=== PATIENT | female | born 1955 | race Caucasian/White ===

== ENCOUNTER 2016-08-15 21:41 | Inpatient (IN) | payer OTHER ==
[~2016-08-15] VITALS: Ht 160 cm; Wt 87.7 kg
[~2016-08-15 21:41] MED LIST: ADVAIR 250/501 DISK IH; ALBUTEROL2.5 MG/3 M IH; AUGMENTIN875 MG PO; AZITHROMYCIN500 M1 PO; CALCIUM 500 +1 EACH PO; CEFTIN500 MG PO; COMBIVENT200 INHALA IH; DELTASONE20 M1 PO; ENDOCET 5-3251 EACH PO; FAMOTIDINE20 MG PO; FLONASE16 G1 NS; INCRUSE ELLI62.5 MCG IH; LEVOFLOXACIN750 MG PO; LEVOTHYROXINE25 MCG PO; MEDROL DOSEPAK4 MG PO; NICODERM CQ1 EAC2 TD; NICOTINE PATCH1 EACH TD; NOHOMEMEDS; PAROXETINE HCL30 MG PO; PREDNISONE10 M1 PO; PREDNISONE10 MG PO; PROAIR HFA8.5 GM IH; PROVENTIL HFA6.7 GM IH; PROVENTIL,2.5 MG/0.5 IH; PROVENTIL,2.5 MG/3 M IH; SPIRIVA1 INHALATI IH; TYLENOL REGULA325 MG PO; predniSONE PO
[2016-08-15 22:06] LABS: EOSINOPHIL COUNT 0.1 K/uL (0-0.3); HEMATOCRIT 46.6 % (36.0-46.0); IMMATURE GRANULOCYTE (%) 0.1 % (0.0-0.7); IMMATURE GRANULOCYTE COUNT 0.1 K/uL; LYMPHOCYTE COUNT 1.4 K/uL (1.0-2.8); MCV 100.2 FL (83-99); MEAN PLAT.VOLUME 9.7 uM^3 (9.5-12.4); MONOCYTE (%) 8.8 % (3-12); MONOCYTE COUNT 0.8 K/uL (0-0.8); NEUTROPHIL (%) 74.3 % (45-76); NEUTROPHIL COUNT 6.7 K/uL (1.8-6.4); PLATELET COUNT 181 K/uL (156-360); RBC DIS.WIDTH-CV 13.8 % (11.8-14.6); RBC DIS.WIDTH-SD 49.7 % (39-53); RED BLOOD COUNT 4.65 M/uL (3.80-5.20)
[2016-08-15 22:14] LABS: CHLORIDE 94 mEq/L (99-109); SODIUM 149 mEq/L (136-147)
[2016-08-15 22:15] LABS: MAGNESIUM 1.9 mg/dL (1.3-2.7)
[2016-08-15 22:16] LABS: GLUCOSE 125 mg/dL (70-99)
[2016-08-15 22:17] LABS: PROTHROMBIN TIME 10.6 (9.2-11.2); PTT 24.2 (25-32)
[2016-08-15 22:18] LABS: ANION GAP 9 MEQ/L (2-14)
[2016-08-15 22:20] LABS: GFR ESTIMATE (CALCULATED) > 59 mL/min/
[2016-08-15 22:21] LABS: UREA NITROGEN (BUN) 12 mg/dL (9-23)
[2016-08-15 22:28] LABS: TROP-I INTERPRETATION NEGATIVE; TROPONIN-I 0.01 ng/mL (0.0-0.30)
[2016-08-15 22:31] LABS: CARBON DIOXIDE (BICARBONATE) > 40.0 mEq/L (20-31)
[2016-08-15 22:50] LABS: INFLUENZA A VIRAL ANTIGEN NEGATIVE; INFLUENZA B VIRAL ANTIGEN NEGATIVE
[2016-08-15 23:03] LABS: BASE EXCESS 19.3 mEq/L (-3 to +3); BICARBONATE 51.7 mEq/L (22-26); CARBOXY HGB 3.8 % (0-5); METHEMOGLOBIN 1.2 % (0-1.5); PCO2 110 mm Hg (35-45); PO2 58 mm Hg (80-100)
[2016-08-15 23:04] LABS: COMMENTS - BLOOD GASES C+A+; DEVICE NC; O2 FLOW 6 L/MIN; SITE RR; pH 7.28 (7.35-7.45)
[2016-08-15] MEDS ORDERED: VENTOLIN HFA18 GM IH (23:24)
[2016-08-16 05:50] VITALS: BP 125/78
[2016-08-16 07:22] VITALS: BP 119/56
[2016-08-16 08:16] VITALS: BP 131/60
[2016-08-16 11:33] VITALS: BP 137/65
[2016-08-16 15:56] VITALS: BP 124/59
[2016-08-16 20:12] VITALS: BP 157/65
[2016-08-17] VITALS (7 sets, daily range): BP systolic 131–184; BP diastolic 59–80
[2016-08-17 07:00] LABS: EOSINOPHIL (%) 0.1 % (0-5); HEMATOCRIT 47.7 % (36.0-46.0); IMMATURE GRANULOCYTE (%) 0.4 % (0.0-0.7); LYMPHOCYTE COUNT 0.5 K/uL (1.0-2.8); MCH 29.6 PG (29.0-34.0); MCHC 29.6 G/DL (30.0-36.0); MCV 100.2 FL (83-99); MEAN PLAT.VOLUME 10.8 uM^3 (9.5-12.4); MONOCYTE COUNT 0.2 K/uL (0-0.8); NEUTROPHIL (%) 93.1 % (45-76); NEUTROPHIL COUNT 9.8 K/uL (1.8-6.4); PLATELET COUNT 211 K/uL (156-360); RBC DIS.WIDTH-CV 13.9 % (11.8-14.6); RBC DIS.WIDTH-SD 51.3 % (39-53); RED BLOOD COUNT 4.76 M/uL (3.80-5.20); WHITE BLOOD COUNT 10.6 K/uL (4.1-10.2)
[2016-08-17 07:39] LABS: ANION GAP ND MEQ/L (2-14); CHLORIDE 94 MEQ/L (99-109); GFR ESTIMATE (CALCULATED) > 59 mL/min/; SAMPLE HEMOLYSIS CHECK 0; SAMPLE ICTERIC CHECK 0; SAMPLE LIPEMIA CHECK 0; SODIUM 146 MEQ/L (136-147); UREA NITROGEN (BUN) 13 mg/dL (9-23)
[2016-08-17 07:55] LABS: CARBON DIOXIDE (BICARBONATE) > 40.0 MEQ/L (20-31); GLUCOSE 190 mg/dL (70-99); POTASSIUM 5.1 MEQ/L (3.7-5.4)
[2016-08-17 10:37] LABS: BICARBONATE 54.8 mEq/L (22-26); CARBOXY HGB 2.4 % (0-5); COMMENTS - BLOOD GASES A+C+; DEVICE HFNC; METHEMOGLOBIN 1.5 % (0-1.5); O2 FLOW 6 L/MIN; PCO2 125 mm Hg (35-45); PO2 75 mm Hg (80-100); SITE RR
[2016-08-17 10:38] LABS: pH 7.25 (7.35-7.45)
[2016-08-18] VITALS (7 sets, daily range): BP systolic 147–176; BP diastolic 67–78
[2016-08-18 09:26] LABS: SITE RR
[2016-08-18 09:27] LABS: CARBOXY HGB 2.3 % (0-5); DEVICE BIPAP 14/8; HEMOGLOBIN 14.9 (11.9-15.5); O2 FLOW 8 L/MIN; PCO2 129 mm Hg (35-45); PO2 70 mm Hg (80-100)
[2016-08-18 11:51] LABS: BASE EXCESS 21.4 mEq/L (-3 to +3); BICARBONATE 56.1 mEq/L (22-26); CARBOXY HGB 2.3 % (0-5); COMMENTS - BLOOD GASES NAC+; METHEMOGLOBIN 1.5 % (0-1.5); PCO2 128 mm Hg (35-45); PO2 52 mm Hg (80-100); SITE RR; pH 7.25 (7.35-7.45)
[2016-08-18 11:52] LABS: DEVICE BIPAP 14/8; O2 FLOW 8 L/MIN; TOTAL RESP RATE 19 resp/min
[2016-08-18 17:29] LABS: CARBOXY HGB 2.6 % (0-5); METHEMOGLOBIN 1.4 % (0-1.5); PCO2 > 129 mm Hg (35-45)
[2016-08-18 17:30] LABS: COMMENTS - BLOOD GASES A+C+; DEVICE NCH; O2 FLOW 7 L/MIN; PO2 86 mm Hg (80-100); SITE RR
[2016-08-18 17:31] LABS: pH 7.21 (7.35-7.45)
[2016-08-19 03:00] VITALS: BP 130/66
[2016-08-19 07:34] LABS: HEMATOCRIT 50.8 % (36.0-46.0); MCH 27.7 PG (29.0-34.0); MCHC 27.4 G/DL (30.0-36.0); MCV 101.2 FL (83-99); MEAN PLAT.VOLUME 10.7 uM^3 (9.5-12.4); PLATELET COUNT 216 K/uL (156-360); RBC DIS.WIDTH-CV 14.3 % (11.8-14.6); RBC DIS.WIDTH-SD 52.5 % (39-53); RED BLOOD COUNT 5.02 M/uL (3.80-5.20)
[2016-08-19 07:47] LABS: EOSINOPHIL (%) 0 % (0-5); IMMATURE GRANULOCYTE (%) 0.6 % (0.0-0.7); IMMATURE GRANULOCYTE COUNT 0.1 K/uL; LYMPHOCYTE COUNT 0.6 K/uL (1.0-2.8); MONOCYTE (%) 10.5 % (3-12); MONOCYTE COUNT 0.8 K/uL (0-0.8); NEUTROPHIL (%) 81.2 % (45-76); NEUTROPHIL COUNT 6.5 K/uL (1.8-6.4)
[2016-08-19 08:00] VITALS: BP 136/85
[2016-08-19 08:15] LABS: ANION GAP ND MEQ/L (2-14); CARBON DIOXIDE (BICARBONATE) > 40.0 MEQ/L (20-31); CHLORIDE 90 MEQ/L (99-109); GFR ESTIMATE (CALCULATED) > 59 mL/min/; GLUCOSE 163 mg/dL (70-99); POTASSIUM 4.8 MEQ/L (3.7-5.4); SAMPLE HEMOLYSIS CHECK 0; SAMPLE ICTERIC CHECK 0; SAMPLE LIPEMIA CHECK 0; SODIUM 146 MEQ/L (136-147); UREA NITROGEN (BUN) 14 mg/dL (9-23)
[2016-08-19 10:37] LABS: CARBOXY HGB 2.6 % (0-5); METHEMOGLOBIN 1.3 % (0-1.5); PCO2 > 129 mm Hg (35-45); PO2 85 mm Hg (80-100)
[2016-08-19 10:38] LABS: COMMENTS - BLOOD GASES A+C+; DEVICE HFNC; O2 FLOW 9 L/MIN; SITE LR; pH 7.25 (7.35-7.45)
[2016-08-19 12:14] VITALS: BP 140/70
[2016-08-19 12:59] LABS: BASE EXCESS 29.6 mEq/L (-3 to +3); BICARBONATE 62.4 mEq/L (22-26); CARBOXY HGB 2.6 % (0-5); METHEMOGLOBIN 1.2 % (0-1.5)
[2016-08-19 13:00] LABS: PCO2 108 mm Hg (35-45); PO2 67 mm Hg (80-100); pH 7.37 (7.35-7.45)
[2016-08-19 13:01] LABS: COMMENTS - BLOOD GASES A+C+; DEVICE BIPAP 15/8; O2 FLOW 7 L/MIN; SITE LR
[2016-08-19 16:27] LABS: BASE EXCESS 26.1 mEq/L (-3 to +3); BICARBONATE 59.8 mEq/L (22-26); CARBOXY HGB 2.5 % (0-5); METHEMOGLOBIN 1.4 % (0-1.5); PCO2 116 mm Hg (35-45); PO2 51 mm Hg (80-100); SITE RR; pH 7.32 (7.35-7.45)
[2016-08-19 16:28] LABS: COMMENTS - BLOOD GASES A+C+; DEVICE NCH; O2 FLOW 7 L/MIN; TOTAL RESP RATE 20 resp/min
[2016-08-19 17:01] VITALS: BP 131/81
[2016-08-19 19:10] VITALS: BP 131/64
[2016-08-19 23:10] VITALS: BP 129/60
[2016-08-20 03:00] VITALS: BP 138/77
[2016-08-20 07:36] VITALS: BP 136/99
[2016-08-20 07:36] LABS: HEMATOCRIT 46.5 % (36.0-46.0); MCH 29.3 PG (29.0-34.0); MCHC 29.7 G/DL (30.0-36.0); MCV 98.7 FL (83-99); MEAN PLAT.VOLUME 10.6 uM^3 (9.5-12.4); PLATELET COUNT 229 K/uL (156-360); RBC DIS.WIDTH-SD 50.7 % (39-53); RED BLOOD COUNT 4.71 M/uL (3.80-5.20); WHITE BLOOD COUNT 9.4 K/uL (4.1-10.2)
[2016-08-20 08:02] LABS: ANION GAP ND MEQ/L (2-14); CHLORIDE 91 MEQ/L (99-109); GFR ESTIMATE (CALCULATED) > 59 mL/min/; GLUCOSE 145 mg/dL (70-99); POTASSIUM 4.3 MEQ/L (3.7-5.4); SAMPLE HEMOLYSIS CHECK 0; SAMPLE ICTERIC CHECK 0; SAMPLE LIPEMIA CHECK 0; SODIUM 146 MEQ/L (136-147); UREA NITROGEN (BUN) 13 mg/dL (9-23)
[2016-08-20 08:12] LABS: CARBON DIOXIDE (BICARBONATE) > 40.0 MEQ/L (20-31)
[2016-08-20 09:57] LABS: BASE EXCESS 25.6 mEq/L (-3 to +3); BICARBONATE 57.6 mEq/L (22-26); CARBOXY HGB 2.4 % (0-5); METHEMOGLOBIN 1.3 % (0-1.5); PO2 55 mm Hg (80-100); pH 7.36 (7.35-7.45)
[2016-08-20 09:58] LABS: COMMENTS - BLOOD GASES A+C+; DEVICE NCH; O2 FLOW 5 L/MIN; PCO2 102 mm Hg (35-45); SITE LR; TOTAL RESP RATE 19 resp/min
[2016-08-20 12:51] VITALS: BP 134/69
[2016-08-20 17:39] VITALS: BP 140/66
[2016-08-20 20:00] VITALS: BP 131/63
[2016-08-20 23:56] VITALS: BP 130/61
[2016-08-21 06:11] LABS: HEMATOCRIT 49.9 % (36.0-46.0); MCH 27.8 PG (29.0-34.0); MCHC 28.3 G/DL (30.0-36.0); MCV 98.4 FL (83-99); MEAN PLAT.VOLUME 10.1 uM^3 (9.5-12.4); PLATELET COUNT 241 K/uL (156-360); RBC DIS.WIDTH-CV 14.2 % (11.8-14.6); RBC DIS.WIDTH-SD 50.4 % (39-53); RED BLOOD COUNT 5.07 M/uL (3.80-5.20); WHITE BLOOD COUNT 9.4 K/uL (4.1-10.2)
[2016-08-21 06:49] LABS: ANION GAP ND MEQ/L (2-14); CHLORIDE 95 MEQ/L (99-109); GFR ESTIMATE (CALCULATED) > 59 mL/min/; SAMPLE HEMOLYSIS CHECK 0; SAMPLE ICTERIC CHECK 0; SAMPLE LIPEMIA CHECK 0; SODIUM 148 MEQ/L (136-147); UREA NITROGEN (BUN) 10 mg/dL (9-23)
[2016-08-21 06:50] LABS: CARBON DIOXIDE (BICARBONATE) > 40.0 MEQ/L (20-31); GLUCOSE 102 mg/dL (70-99)
[2016-08-21 08:40] VITALS: BP 131/60
[2016-08-21] MEDS ORDERED: PREDNISONE10 MG PO (11:13)
[2016-08-21] MEDS ORDERED: LEVAQUIN500 MG PO (11:13)
[2016-08-21] MEDS ORDERED: ATIVAN0.5 MG PO (15:34)
[2016-08-21] MEDS ORDERED: MORPHINE CON20 MG/M1 PO (15:34)
== END 2016-08-21 16:32 | disposition hospice, home (50) | DRG 189 ==
LOC: EME → EDBD 21:41 → EME 21:41 → EDOF 08-16 04:55 → 5EAST 08-16 04:55 → 4EAST 08-16 04:55 → 5EAST 08-20 23:26
PROVIDERS: Emergency Medicine; Hospitalist; Internal Medicine; Internal Medicine Pulmonary Disease
DX: J96.21 Acute and chronic respiratory failure with hypoxia (principal); J44.1 Chronic obstructive pulmonary disease with (acute) exacerbation; E87.2 Acidosis; K21.9 Gastro-esophageal reflux disease without esophagitis; E03.9 Hypothyroidism, unspecified; F17.210 Nicotine dependence, cigarettes, uncomplicated; F10.10 Alcohol abuse, uncomplicated; E66.9 Obesity, unspecified; Z99.81 Dependence on supplemental oxygen; Z68.34 Body mass index [BMI] 34.0-34.9, adult; Z91.19 Patient's noncompliance with other medical treatment and regimen
CPT/HCPCS: 36600; 71010; 71275; 80048; 81003; 82803; 82948; 83735; 84484; 85025; 85027; 85610; 85730; 87070; 87205; 87502; 93005; 94640; 94640 76; 94644; 94660; 94760; 94799; 99281; 99285; J0360; J1650; J1956; J2060; J2920; J2930; J3475; J7030; J7512; J7644

== ENCOUNTER 2016-09-07 20:27 | Inpatient (IN) | payer OTHER ==
[~2016-09-07] VITALS: Ht 160 cm; Wt 82.9 kg
[~2016-09-07 20:27] MED LIST changes: +ATIVAN0.5 MG PO; +LEVAQUIN500 MG PO; +MORPHINE CON20 MG/M1 PO; +VENTOLIN HFA18 GM IH
[2016-09-07 21:03] LABS: BICARBONATE 53.2 mEq/L (22-26); CARBOXY HGB 2.5 % (0-5); COMMENTS - BLOOD GASES A+C+; DEVICE 980; FI02 100 %; METHEMOGLOBIN 1.2 % (0-1.5); MODE SPONT; PCO2 92 mm Hg (35-45); PEEP 5 CM/H20; PO2 419 mm Hg (80-100); PRES. SUPPORT 10 CM/H2O; SITE RR; TOTAL RESP RATE 21 resp/min; pH 7.37 (7.35-7.45)
[2016-09-07 21:05] LABS: POINT-OF-CARE METER ID UU14100415; POINT-OF-CARE USER ID 611181311
[2016-09-07 21:09] LABS: HEMATOCRIT 48.1 % (36.0-46.0); MCH 28.5 PG (29.0-34.0); MCHC 29.7 G/DL (30.0-36.0); MCV 95.8 FL (83-99); MEAN PLAT.VOLUME 9.8 uM^3 (9.5-12.4); RBC DIS.WIDTH-CV 13.2 % (11.8-14.6); RBC DIS.WIDTH-SD 46.9 % (39-53); RED BLOOD COUNT 5.02 M/uL (3.80-5.20)
[2016-09-07 21:21] LABS: VENOUS PCO2 90 mm Hg (41-51)
[2016-09-07 21:22] LABS: CARBON DIOXIDE (BICARBONATE) > 40.0 MEQ/L (20-31)
[2016-09-07 21:26] LABS: PLATELET COUNT 166 K/uL (156-360); WHITE BLOOD COUNT 12.9 K/uL (4.1-10.2)
[2016-09-07 21:32] LABS: CHLORIDE 90 mEq/L (99-109); POTASSIUM 3.9 mEq/L (3.7-5.4); SODIUM 141 mEq/L (136-147)
[2016-09-07 21:33] LABS: GLUCOSE 188 mg/dL (70-99)
[2016-09-07 21:35] LABS: ANION GAP 8 MEQ/L (2-14)
[2016-09-07 21:45] LABS: CARBON DIOXIDE (BICARBONATE) > 40.0 mEq/L (20-31)
[2016-09-07 21:46] LABS: TROP-I INTERPRETATION NEGATIVE; TROPONIN-I 0.03 ng/mL (0.0-0.30)
[2016-09-07 21:59] LABS: SERUM ETHYL ALCOHOL < 10 mg/dL
[2016-09-07 22:00] LABS: GFR ESTIMATE (CALCULATED) > 59 mL/min/
[2016-09-07 22:01] LABS: UREA NITROGEN (BUN) 19 mg/dL (9-23)
[2016-09-07] MEDS ORDERED: FEVERALL650 M1 PR (22:11)
[2016-09-07] MEDS ORDERED: HALOPERIDOL2 MG/1 ML PO (22:15)
[2016-09-07] MEDS ORDERED: HYOSCYAMINE0.125 MG PO (22:16)
[2016-09-07] MEDS ORDERED: LORAZEPAM0.5 MG PO (22:19)
[2016-09-07 22:21] LABS: BILIRUBIN NEGATIVE; BLOOD NEGATIVE; COLOR YELLOW ((YELLOW)); GLUCOSE (STRIP) NEGATIVE; KETONES NEGATIVE; LEUKOCYTES NEGATIVE; NITRITE NEGATIVE; PROTEIN (STRIP) 30; SPECIFIC GRAVITY 1.021 (1.000-1.030)
[2016-09-07 22:22] LABS: ADD MIUA? NO; UCUL ADDED? NO
[2016-09-07] MEDS ORDERED: MORPHINE CON20 MG/M1 PO (22:22)
[2016-09-07] MEDS ORDERED: PROCHLORPERAZIN10 MG PO (22:25)
[2016-09-07] MEDS ORDERED: SENNA S TABLET1 EACH PO (22:26)
[2016-09-07 23:45] VITALS: BP 105/39; BP 98/53
[2016-09-08] VITALS (23 sets, daily range): BP systolic 89–118; BP diastolic 37–72
[2016-09-08 01:01] LABS: METH RESISTANT S AUREUS PCR NEGATIVE (NEGATIVE)
[2016-09-08 01:14] LABS: COMMENTS - BLOOD GASES C+; DEVICE 980; FI02 40 %; MODE NIV; PRES. SUPPORT 10 CM/H2O; SITE RR; TOTAL RESP RATE 18 resp/min
[2016-09-08 01:15] LABS: BICARBONATE 52.7 mEq/L (22-26); CARBOXY HGB 2.8 % (0-5); METHEMOGLOBIN 1.6 % (0-1.5); O2 SATURATION (CALCULATED) 85.9 % (95-99); PCO2 87 mm Hg (35-45); PEEP 5 CM/H20; PO2 46 mm Hg (80-100); pH 7.39 (7.35-7.45)
[2016-09-08 01:15] LABS: PROBE CHECK PASS; SPECIMEN PROCESSING CONTROL PASS
[2016-09-08 06:01] LABS: HEMATOCRIT 46.5 % (36.0-46.0); MCH 28.4 PG (29.0-34.0); MCHC 29.5 G/DL (30.0-36.0); MCV 96.3 FL (83-99); MEAN PLAT.VOLUME 10.3 uM^3 (9.5-12.4); PLATELET COUNT 142 K/uL (156-360); RBC DIS.WIDTH-CV 13.5 % (11.8-14.6); RBC DIS.WIDTH-SD 48.2 % (39-53); RED BLOOD COUNT 4.83 M/uL (3.80-5.20)
[2016-09-08 06:03] LABS: WHITE BLOOD COUNT 8.5 K/uL (4.1-10.2)
[2016-09-08 06:22] LABS: ALKALINE PHOSPHATASE 62 IU/L (3-129); ANION GAP ND MEQ/L (2-14); CHLORIDE 93 MEQ/L (99-109); GFR ESTIMATE (CALCULATED) > 59 mL/min/; GLUCOSE 204 mg/dL (70-99); POTASSIUM 3.6 MEQ/L (3.7-5.4); SAMPLE HEMOLYSIS CHECK 0; SAMPLE ICTERIC CHECK 0; SAMPLE LIPEMIA CHECK 0; SODIUM 142 MEQ/L (136-147); TOTAL BILIRUBIN 0.5 MG/DL (0.0-1.0); UREA NITROGEN (BUN) 17 mg/dL (9-23)
[2016-09-08 06:24] LABS: CARBON DIOXIDE (BICARBONATE) > 40.0 MEQ/L (20-31)
[2016-09-09] VITALS (21 sets, daily range): BP systolic 88–143; BP diastolic 49–91
[2016-09-09 06:03] LABS: HEMATOCRIT 43.5 % (36.0-46.0); MCH 28.5 PG (29.0-34.0); MCHC 30.1 G/DL (30.0-36.0); MCV 94.8 FL (83-99); MEAN PLAT.VOLUME 10.4 uM^3 (9.5-12.4); PLATELET COUNT 174 K/uL (156-360); RBC DIS.WIDTH-CV 13.6 % (11.8-14.6); RBC DIS.WIDTH-SD 47.6 % (39-53); RED BLOOD COUNT 4.59 M/uL (3.80-5.20); WHITE BLOOD COUNT 9.7 K/uL (4.1-10.2)
[2016-09-09 06:36] LABS: ANION GAP 5 MEQ/L (2-14); GFR ESTIMATE (CALCULATED) > 59 mL/min/; GLUCOSE 157 mg/dL (70-99); MAGNESIUM 1.9 mg/dl (1.3-2.7); POTASSIUM 3.6 MEQ/L (3.7-5.4); SAMPLE HEMOLYSIS CHECK 0; SAMPLE ICTERIC CHECK 0; SAMPLE LIPEMIA CHECK 0; SODIUM 146 MEQ/L (136-147); UREA NITROGEN (BUN) 16 mg/dL (9-23)
[2016-09-09 06:47] LABS: CHLORIDE 104 MEQ/L (99-109)
[2016-09-09 17:00] LABS: POINT-OF-CARE METER ID UU14162636
[2016-09-09 22:06] LABS: POINT-OF-CARE METER ID UU14162636
[2016-09-10] VITALS (7 sets, daily range): BP systolic 110–159; BP diastolic 62–72
[2016-09-10 07:12] LABS: HEMATOCRIT 40.3 % (36.0-46.0); MCH 28.6 PG (29.0-34.0); MCHC 30.8 G/DL (30.0-36.0); MCV 92.9 FL (83-99); PLATELET COUNT 189 K/uL (156-360); RBC DIS.WIDTH-CV 13.6 % (11.8-14.6); RBC DIS.WIDTH-SD 46.3 % (39-53); RED BLOOD COUNT 4.34 M/uL (3.80-5.20); WHITE BLOOD COUNT 9.3 K/uL (4.1-10.2)
[2016-09-10 07:15] LABS: ANION GAP 8 MEQ/L (2-14); CHLORIDE 100 MEQ/L (99-109); GFR ESTIMATE (CALCULATED) > 59 mL/min/; POTASSIUM 3.3 MEQ/L (3.7-5.4); SAMPLE HEMOLYSIS CHECK 0; SAMPLE ICTERIC CHECK 0; SAMPLE LIPEMIA CHECK 0; SODIUM 144 MEQ/L (136-147); UREA NITROGEN (BUN) 18 mg/dL (9-23)
[2016-09-10 07:16] LABS: GLUCOSE 249 mg/dL (70-99)
[2016-09-10 07:51] LABS: POINT-OF-CARE METER ID UU14162636; POINT-OF-CARE USER ID NUTJLF39
[2016-09-10 12:00] LABS: POINT-OF-CARE METER ID UU14174217; POINT-OF-CARE USER ID NUTJLF39
[2016-09-10 16:10] LABS: POINT-OF-CARE METER ID UU14174217; POINT-OF-CARE USER ID NUTJLF39
[2016-09-11 06:02] LABS: EOSINOPHIL (%) 0 % (0-5); IMMATURE GRANULOCYTE (%) 0.5 % (0.0-0.7); IMMATURE GRANULOCYTE COUNT 0.1 K/uL; INSTRUMENT ABS NEUTROPHIL CT 8.4 K/uL; LYMPHOCYTE COUNT 0.5 K/uL (1.0-2.8); MCH 28.4 PG (29.0-34.0); MCHC 30.7 G/DL (30.0-36.0); MCV 92.5 FL (83-99); MEAN PLAT.VOLUME 10.4 uM^3 (9.5-12.4); MONOCYTE (%) 2.7 % (3-12); MONOCYTE COUNT 0.3 K/uL (0-0.8); NEUTROPHIL (%) 91.2 % (45-76); NEUTROPHIL COUNT 8.4 K/uL (1.8-6.4); PLATELET COUNT 196 K/uL (156-360); RBC DIS.WIDTH-CV 14.1 % (11.8-14.6); RBC DIS.WIDTH-SD 47.6 % (39-53); RED BLOOD COUNT 4.65 M/uL (3.80-5.20); WHITE BLOOD COUNT 9.2 K/uL (4.1-10.2)
[2016-09-11 06:26] LABS: ANION GAP 7 MEQ/L (2-14); CHLORIDE 100 MEQ/L (99-109); GFR ESTIMATE (CALCULATED) > 59 mL/min/; GLUCOSE 205 mg/dL (70-99); MAGNESIUM 1.9 mg/dl (1.3-2.7); SAMPLE HEMOLYSIS CHECK 0; SAMPLE ICTERIC CHECK 0; SAMPLE LIPEMIA CHECK 0; SODIUM 144 MEQ/L (136-147); UREA NITROGEN (BUN) 15 mg/dL (9-23)
[2016-09-11 06:27] LABS: ALKALINE PHOSPHATASE 55 IU/L (3-129); ANION GAP 7 MEQ/L (2-14); CHLORIDE 100 MEQ/L (99-109); GFR ESTIMATE (CALCULATED) > 59 mL/min/; GLUCOSE 204 mg/dL (70-99); POTASSIUM 4.1 MEQ/L (3.7-5.4); POTASSIUM 4.2 MEQ/L (3.7-5.4); SAMPLE HEMOLYSIS CHECK 0; SAMPLE ICTERIC CHECK 0; SAMPLE LIPEMIA CHECK 0; SODIUM 144 MEQ/L (136-147); TOTAL BILIRUBIN 0.4 MG/DL (0.0-1.0); UREA NITROGEN (BUN) 15 mg/dL (9-23)
[2016-09-11 07:48] VITALS: BP 121/69
[2016-09-11] MEDS ORDERED: PREDNISONE10 MG PO (09:34)
[2016-09-11] MEDS ORDERED: CARDIZEM CD120 M1 PO (09:34)
[2016-09-11] MEDS ORDERED: PREDNISONE10 M1 PO (09:34)
[2016-09-11] MEDS ORDERED: CEFDINIR300 MG PO (09:34)
== END 2016-09-11 13:25 | disposition hospice, home (50) | DRG 190 ==
LOC: EME → EDSEX 20:27 → EME 20:27 → EDBD 20:27 → EDOF 23:00 → 4WEST 23:00 → 5EAST 09-10 16:24
PROVIDERS: Emergency Medicine; Hospitalist; Internal Medicine Critical Care Medicine
PROC: 5A09458 Assistance with Respiratory Ventilation, 24-96 Consecutive Hours, Intermittent Positive Airway Pressure (ICD-10-PCS; principal; 2016-09-07)
DX: J44.0 Chronic obstructive pulmonary disease with (acute) lower respiratory infection (principal); J96.21 Acute and chronic respiratory failure with hypoxia; J96.22 Acute and chronic respiratory failure with hypercapnia; J20.9 Acute bronchitis, unspecified; J44.1 Chronic obstructive pulmonary disease with (acute) exacerbation; I47.1 Supraventricular tachycardia; E83.42 Hypomagnesemia; E87.6 Hypokalemia; Z99.81 Dependence on supplemental oxygen; S92.332A Displaced fracture of third metatarsal bone, left foot, initial encounter for closed fracture; S92.342A Displaced fracture of fourth metatarsal bone, left foot, initial encounter for closed fracture; W19.XXXA Unspecified fall, initial encounter; G47.33 Obstructive sleep apnea (adult) (pediatric); K21.9 Gastro-esophageal reflux disease without esophagitis; E03.9 Hypothyroidism, unspecified; F32.9 Major depressive disorder, single episode, unspecified; Z66 Do not resuscitate; F17.210 Nicotine dependence, cigarettes, uncomplicated; E66.9 Obesity, unspecified; Y92.009 Unspecified place in unspecified non-institutional (private) residence as the place of occurrence of the external cause; Z79.52 Long term (current) use of systemic steroids; Z68.32 Body mass index [BMI] 32.0-32.9, adult
CPT/HCPCS: 36600; 70450; 71010; 71275; 73630; 80048; 80053; 81003; 82140; 82803; 82948; 83605; 83735; 84100; 84484; 85025; 85027; 87040; 87070; 87205; 87641; 93005; 94002; 94003; 94640; 94640 76; 94644; 94799; 97530 GP; 99202; 99281; 99285; G0480; J0456; J0696; J1120; J1650; J1815; J1940; J2543; J2920; J2930; J3475; J3480; J7030; J7050

== ENCOUNTER 2016-11-06 10:36 | Inpatient (IN) | payer OTHER ==
[~2016-11-06] VITALS: Ht 160 cm; Wt 92.2 kg
[2016-11-06] VITALS (10 sets, daily range): BP systolic 99–127; BP diastolic 47–62
[~2016-11-06 10:36] MED LIST changes: +CARDIZEM CD120 M1 PO; +CEFDINIR300 MG PO; +FEVERALL650 M1 PR; +HALOPERIDOL2 MG/1 ML PO; +HYOSCYAMINE0.125 MG PO; +LORAZEPAM0.5 MG PO; +PROCHLORPERAZIN10 MG PO; +SENNA S TABLET1 EACH PO
[2016-11-06 11:01] LABS: CARBOXY HGB 3.9 % (0-5); METHEMOGLOBIN 1.1 % (0-1.5); PO2 61 mm Hg (80-100)
[2016-11-06 11:02] LABS: PCO2 > 128 mm Hg (35-45); pH 7.21 (7.35-7.45)
[2016-11-06 11:03] LABS: COMMENTS - BLOOD GASES A+C+; DEVICE HFNC; O2 FLOW 10 L/MIN; SITE LR; TOTAL RESP RATE 22 resp/min
[2016-11-06 11:24] LABS: EOSINOPHIL (%) 0.5 % (0-5); EOSINOPHIL COUNT 0.1 K/uL (0-0.3); HEMATOCRIT 51.5 % (36.0-46.0); IMMATURE GRANULOCYTE (%) 0.5 % (0.0-0.7); IMMATURE GRANULOCYTE COUNT 0.1 K/uL; INSTRUMENT ABS NEUTROPHIL CT 10.4 K/uL; LYMPHOCYTE COUNT 1.6 K/uL (1.0-2.8); MCH 28.8 PG (29.0-34.0); MCHC 29.1 G/DL (30.0-36.0); MEAN PLAT.VOLUME 9.4 uM^3 (9.5-12.4); MONOCYTE COUNT 1.1 K/uL (0-0.8); NEUTROPHIL (%) 78.5 % (45-76); NEUTROPHIL COUNT 10.4 K/uL (1.8-6.4); PLATELET COUNT 217 K/uL (156-360); RBC DIS.WIDTH-CV 13.6 % (11.8-14.6); RBC DIS.WIDTH-SD 49.5 % (39-53); WHITE BLOOD COUNT 13.3 K/uL (4.1-10.2)
[2016-11-06 11:33] LABS: INTER. NORMALIZED RATIO 1.1; PTT 24.3 (25-32)
[2016-11-06 11:35] LABS: CHLORIDE 91 mEq/L (99-109); POTASSIUM 4.2 mEq/L (3.7-5.4); SODIUM 146 mEq/L (136-147)
[2016-11-06 11:37] LABS: GLUCOSE 150 mg/dL (70-99)
[2016-11-06 11:38] LABS: ANION GAP 9 MEQ/L (2-14)
[2016-11-06 11:39] LABS: CARBON DIOXIDE (BICARBONATE) > 40.0 mEq/L (20-31)
[2016-11-06 11:40] LABS: GFR ESTIMATE (CALCULATED) > 59 mL/min/
[2016-11-06 11:41] LABS: UREA NITROGEN (BUN) 11 mg/dL (9-23)
[2016-11-06 11:49] LABS: TROP-I INTERPRETATION NEGATIVE; TROPONIN-I 0.01 ng/mL (0.0-0.30)
[2016-11-06 15:34] LABS: BASE EXCESS 26.9 mEq/L (-3 to +3); BICARBONATE 59.5 mEq/L (22-26); CARBOXY HGB 3.9 % (0-5); METHEMOGLOBIN 1.5 % (0-1.5)
[2016-11-06 15:35] LABS: COMMENTS - BLOOD GASES A+C+; DEVICE 980 MASK VENT; FI02 50 %; MECHANICAL RATE 14 resp/min; MODE SIMV; PCO2 103 mm Hg (35-45); PEEP 5 CM/H20; PO2 79 mm Hg (80-100); PRES. SUPPORT 15 CM/H2O; SITE LR; TIDAL VOLUME 490 ML; pH 7.37 (7.35-7.45)
[2016-11-06 15:53] LABS: METH RESISTANT S AUREUS PCR NEGATIVE (NEGATIVE)
[2016-11-06 16:02] LABS: MAGNESIUM 2.2 mg/dL (1.3-2.7)
[2016-11-06 16:09] LABS: PROBE CHECK PASS; SPECIMEN PROCESSING CONTROL PASS
[2016-11-06 16:43] LABS: ADD MIUA? NO; BILIRUBIN NEGATIVE; BLOOD NEGATIVE; COLOR YELLOW ((YELLOW)); GLUCOSE (STRIP) NEGATIVE; KETONES 5; LEUKOCYTES NEGATIVE; NITRITE NEGATIVE; PROTEIN (STRIP) 30; SPECIFIC GRAVITY 1.016 (1.000-1.030); UCUL ADDED? NO; UROBILINOGEN 0.2 MG/DL (0.2-1.0)
[2016-11-06 19:38] LABS: BICARBONATE 58.3 mEq/L (22-26); CARBOXY HGB 3.5 % (0-5); METHEMOGLOBIN 1.5 % (0-1.5); pH 7.41 (7.35-7.45)
[2016-11-06 19:39] LABS: COMMENTS - BLOOD GASES A+C+; DEVICE 980 MASK VENT; FI02 40 %; MECHANICAL RATE 14 resp/min; MODE SIMV; PCO2 92 mm Hg (35-45); PO2 49 mm Hg (80-100); SITE LR; TIDAL VOLUME 490 ML; TOTAL RESP RATE 21 resp/min
[2016-11-06 19:40] LABS: PEEP 5 CM/H20; PRES. SUPPORT 15 CM/H2O
[2016-11-06 20:03] LABS: POINT-OF-CARE METER ID UU13113803
[2016-11-07] VITALS (18 sets, daily range): BP systolic 99–131; BP diastolic 41–67
[2016-11-07 01:47] LABS: POINT-OF-CARE METER ID UU14162636
[2016-11-07 07:30] LABS: ANION GAP ND MEQ/L (2-14); CHLORIDE 92 MEQ/L (99-109); GFR ESTIMATE (CALCULATED) > 59 mL/min/; GLUCOSE 217 mg/dL (70-99); MAGNESIUM 1.9 mg/dl (1.3-2.7); POTASSIUM 3.9 MEQ/L (3.7-5.4); SAMPLE HEMOLYSIS CHECK 0; SAMPLE ICTERIC CHECK 0; SAMPLE LIPEMIA CHECK 0; SODIUM 145 MEQ/L (136-147); UREA NITROGEN (BUN) 15 mg/dL (9-23)
[2016-11-07 07:33] LABS: CARBON DIOXIDE (BICARBONATE) > 40.0 MEQ/L (20-31)
[2016-11-07 08:26] LABS: BASE EXCESS 25.6 mEq/L (-3 to +3); BICARBONATE 56.9 mEq/L (22-26); CARBOXY HGB 2.6 % (0-5); METHEMOGLOBIN 1.6 % (0-1.5); PCO2 94 mm Hg (35-45); PO2 57 mm Hg (80-100); pH 7.39 (7.35-7.45)
[2016-11-07 08:28] LABS: COMMENTS - BLOOD GASES A+C+; DEVICE HFNC; O2 FLOW 11 L/MIN; SITE LR; TOTAL RESP RATE 18 resp/min
[2016-11-07 10:39] LABS: EOSINOPHIL (%) 0 % (0-5); HEMATOCRIT 45.4 % (36.0-46.0); IMMATURE GRANULOCYTE (%) 0.4 % (0.0-0.7); INSTRUMENT ABS NEUTROPHIL CT 8.9 K/uL; LYMPHOCYTE COUNT 0.7 K/uL (1.0-2.8); MCH 28.6 PG (29.0-34.0); MCV 95.4 FL (83-99); MEAN PLAT.VOLUME 10.5 uM^3 (9.5-12.4); MONOCYTE (%) 1.5 % (3-12); MONOCYTE COUNT 0.2 K/uL (0-0.8); NEUTROPHIL (%) 90.7 % (45-76); NEUTROPHIL COUNT 8.9 K/uL (1.8-6.4); PLATELET COUNT 216 K/uL (156-360); RBC DIS.WIDTH-CV 13.5 % (11.8-14.6); RBC DIS.WIDTH-SD 47.6 % (39-53); RED BLOOD COUNT 4.76 M/uL (3.80-5.20); WHITE BLOOD COUNT 9.8 K/uL (4.1-10.2)
[2016-11-07] MEDS ORDERED: CARDIZEM CD,CA120 MG PO (18:11)
[2016-11-07] MEDS ORDERED: DUONEB 2.5-0.5 M3 ML AEROSOL (18:11)
[2016-11-07] MEDS ORDERED: DELTASONE20 M1 PO (18:13)
[2016-11-07] MEDS ORDERED: LEVAQUIN750 MG PO (18:13)
[2016-11-08] VITALS (11 sets, daily range): BP systolic 105–176; BP diastolic 49–83
[2016-11-08 05:34] LABS: CHLORIDE 100 mEq/L (99-109); POTASSIUM 4.1 mEq/L (3.7-5.4); SODIUM 146 mEq/L (136-147)
[2016-11-08 05:35] LABS: MAGNESIUM 2.1 mg/dL (1.3-2.7)
[2016-11-08 05:36] LABS: GLUCOSE 212 mg/dL (70-99)
[2016-11-08 05:37] LABS: ANION GAP 8 MEQ/L (2-14)
[2016-11-08 05:40] LABS: GFR ESTIMATE (CALCULATED) > 59 mL/min/
[2016-11-08 05:41] LABS: UREA NITROGEN (BUN) 16 mg/dL (9-23)
[2016-11-08 05:42] LABS: EOSINOPHIL (%) 0 % (0-5); HEMATOCRIT 44.2 % (36.0-46.0); IMMATURE GRANULOCYTE (%) 0.6 % (0.0-0.7); IMMATURE GRANULOCYTE COUNT 0.1 K/uL; INSTRUMENT ABS NEUTROPHIL CT 15.3 K/uL; LYMPHOCYTE COUNT 0.8 K/uL (1.0-2.8); MCH 28.7 PG (29.0-34.0); MCV 92.7 FL (83-99); MEAN PLAT.VOLUME 10.3 uM^3 (9.5-12.4); MONOCYTE (%) 1.9 % (3-12); MONOCYTE COUNT 0.3 K/uL (0-0.8); NEUTROPHIL (%) 92.5 % (45-76); NEUTROPHIL COUNT 15.3 K/uL (1.8-6.4); PLATELET COUNT 251 K/uL (156-360); RBC DIS.WIDTH-CV 13.6 % (11.8-14.6); RBC DIS.WIDTH-SD 46.5 % (39-53); RED BLOOD COUNT 4.77 M/uL (3.80-5.20)
[2016-11-08 05:49] LABS: WHITE BLOOD COUNT 16.6 K/uL (4.1-10.2)
[2016-11-08 11:54] LABS: POINT-OF-CARE METER ID UU13113725
[2016-11-09 07:05] LABS: EOSINOPHIL (%) 0 % (0-5); HEMATOCRIT 43.2 % (36.0-46.0); IMMATURE GRANULOCYTE (%) 0.8 % (0.0-0.7); IMMATURE GRANULOCYTE COUNT 0.1 K/uL; INSTRUMENT ABS NEUTROPHIL CT 15.9 K/uL; LYMPHOCYTE COUNT 0.7 K/uL (1.0-2.8); MCH 28.8 PG (29.0-34.0); MCHC 31.3 G/DL (30.0-36.0); MCV 92.3 FL (83-99); MEAN PLAT.VOLUME 10.5 uM^3 (9.5-12.4); MONOCYTE (%) 2.6 % (3-12); MONOCYTE COUNT 0.5 K/uL (0-0.8); NEUTROPHIL (%) 92.2 % (45-76); NEUTROPHIL COUNT 15.9 K/uL (1.8-6.4); PLATELET COUNT 249 K/uL (156-360); RBC DIS.WIDTH-SD 47.8 % (39-53); RED BLOOD COUNT 4.68 M/uL (3.80-5.20); WHITE BLOOD COUNT 17.3 K/uL (4.1-10.2)
[2016-11-09 07:24] VITALS: BP 138/58
[2016-11-09 07:33] LABS: ALKALINE PHOSPHATASE 77 IU/L (3-129); ANION GAP 9 MEQ/L (2-14); CHLORIDE 96 MEQ/L (99-109); GFR ESTIMATE (CALCULATED) > 59 mL/min/; GLUCOSE 262 mg/dL (70-99); MAGNESIUM 1.8 mg/dl (1.3-2.7); SAMPLE HEMOLYSIS CHECK 0; SAMPLE ICTERIC CHECK 0; SAMPLE LIPEMIA CHECK 0; SODIUM 140 MEQ/L (136-147); TOTAL BILIRUBIN 0.4 MG/DL (0.0-1.0); UREA NITROGEN (BUN) 17 mg/dL (9-23)
[2016-11-09 10:47] LABS: POINT-OF-CARE METER ID UU13113725
[2016-11-09 15:16] VITALS: BP 140/63
[2016-11-09 19:40] VITALS: BP 158/70
[2016-11-09 23:20] VITALS: BP 131/60
[2016-11-10 03:28] VITALS: BP 147/72
[2016-11-10 05:49] LABS: POINT-OF-CARE METER ID UU13113725
[2016-11-10 07:21] LABS: EOSINOPHIL (%) 0 % (0-5); HEMATOCRIT 43.3 % (36.0-46.0); IMMATURE GRANULOCYTE (%) 0.9 % (0.0-0.7); IMMATURE GRANULOCYTE COUNT 0.1 K/uL; INSTRUMENT ABS NEUTROPHIL CT 13.4 K/uL; LYMPHOCYTE COUNT 1.5 K/uL (1.0-2.8); MCH 29.3 PG (29.0-34.0); MCHC 31.4 G/DL (30.0-36.0); MCV 93.3 FL (83-99); MEAN PLAT.VOLUME 10.8 uM^3 (9.5-12.4); MONOCYTE (%) 7.1 % (3-12); MONOCYTE COUNT 1.2 K/uL (0-0.8); NEUTROPHIL (%) 82.4 % (45-76); NEUTROPHIL COUNT 13.4 K/uL (1.8-6.4); PLATELET COUNT 233 K/uL (156-360); RBC DIS.WIDTH-CV 14.6 % (11.8-14.6); RBC DIS.WIDTH-SD 50.1 % (39-53); RED BLOOD COUNT 4.64 M/uL (3.80-5.20); WHITE BLOOD COUNT 16.3 K/uL (4.1-10.2)
[2016-11-10 07:49] LABS: ANION GAP ND MEQ/L (2-14); CHLORIDE 96 MEQ/L (99-109); GFR ESTIMATE (CALCULATED) > 59 mL/min/; MAGNESIUM 1.9 mg/dl (1.3-2.7); POTASSIUM 4.1 MEQ/L (3.7-5.4); SAMPLE HEMOLYSIS CHECK 0; SAMPLE ICTERIC CHECK 0; SAMPLE LIPEMIA CHECK 0; SODIUM 142 MEQ/L (136-147); UREA NITROGEN (BUN) 14 mg/dL (9-23)
[2016-11-10 07:50] LABS: CARBON DIOXIDE (BICARBONATE) > 40.0 MEQ/L (20-31); GLUCOSE 107 mg/dL (70-99)
[2016-11-10 08:03] VITALS: BP 154/69
[2016-11-10] MEDS ORDERED: AZITHROMYCIN500 M1 PO (11:31)
[2016-11-10] MEDS ORDERED: CALCIUM 500 MG1 EACH PO (11:32)
[2016-11-10 12:17] VITALS: BP 143/67
[2016-11-10 16:43] LABS: POINT-OF-CARE METER ID UU13113725
[2016-11-10 17:06] VITALS: BP 143/61
[2016-11-10 18:53] VITALS: BP 146/67
[2016-11-10 20:47] LABS: POINT-OF-CARE METER ID UU13113725
[2016-11-10 22:56] VITALS: BP 146/67
[2016-11-11 04:09] VITALS: BP 131/60
[2016-11-11 07:16] LABS: EOSINOPHIL (%) 0.4 % (0-5); EOSINOPHIL COUNT 0.1 K/uL (0-0.3); IMMATURE GRANULOCYTE COUNT 0.1 K/uL; INSTRUMENT ABS NEUTROPHIL CT 10.4 K/uL; LYMPHOCYTE COUNT 2.1 K/uL (1.0-2.8); MCH 29.9 PG (29.0-34.0); MCHC 31.6 G/DL (30.0-36.0); MCV 94.6 FL (83-99); MEAN PLAT.VOLUME 10.9 uM^3 (9.5-12.4); MONOCYTE (%) 9.3 % (3-12); MONOCYTE COUNT 1.3 K/uL (0-0.8); NEUTROPHIL COUNT 10.4 K/uL (1.8-6.4); PLATELET COUNT 236 K/uL (156-360); RBC DIS.WIDTH-CV 14.8 % (11.8-14.6); RBC DIS.WIDTH-SD 51.6 % (39-53); RED BLOOD COUNT 4.65 M/uL (3.80-5.20)
[2016-11-11 07:50] VITALS: BP 123/58
[2016-11-11 07:54] LABS: ANION GAP 7 MEQ/L (2-14); CHLORIDE 98 MEQ/L (99-109); GFR ESTIMATE (CALCULATED) > 59 mL/min/; GLUCOSE 84 mg/dL (70-99); POTASSIUM 4.2 MEQ/L (3.7-5.4); SAMPLE HEMOLYSIS CHECK 0; SAMPLE ICTERIC CHECK 0; SAMPLE LIPEMIA CHECK 0; SODIUM 145 MEQ/L (136-147); UREA NITROGEN (BUN) 15 mg/dL (9-23)
[2016-11-11 11:28] LABS: POINT-OF-CARE METER ID UU13113725
[2016-11-11 11:29] VITALS: BP 118/59
== END 2016-11-11 14:38 | disposition home health service (06) | DRG 190 ==
LOC: EME → EDBD 10:36 → EME 10:36 → EDOF 13:03 → 4WEST 13:03 → 5EAST 13:03 → 4WEST 14:30 → 5EAST 11-08 11:04
PROVIDERS: Emergency Medicine; Hospitalist; Internal Medicine; Internal Medicine Nephrology
PROC: 5A09357 Assistance with Respiratory Ventilation, Less than 24 Consecutive Hours, Continuous Positive Airway Pressure (ICD-10-PCS; principal; 2016-11-06)
DX: J44.0 Chronic obstructive pulmonary disease with (acute) lower respiratory infection (principal); J96.22 Acute and chronic respiratory failure with hypercapnia; E87.2 Acidosis; J44.1 Chronic obstructive pulmonary disease with (acute) exacerbation; I10 Essential (primary) hypertension; E03.9 Hypothyroidism, unspecified; K21.9 Gastro-esophageal reflux disease without esophagitis; Z99.81 Dependence on supplemental oxygen; E66.9 Obesity, unspecified; Z68.36 Body mass index [BMI] 36.0-36.9, adult; G47.33 Obstructive sleep apnea (adult) (pediatric); F17.200 Nicotine dependence, unspecified, uncomplicated; J96.21 Acute and chronic respiratory failure with hypoxia; J20.9 Acute bronchitis, unspecified; S80.211A Abrasion, right knee, initial encounter; W19.XXXA Unspecified fall, initial encounter; Y92.019 Unspecified place in single-family (private) house as the place of occurrence of the external cause
CPT/HCPCS: 36600; 71010; 73560; 80048; 80053; 81003; 82803; 82948; 83735; 83880; 84100; 84484; 85025; 85027; 85610; 85730; 87641; 93005; 94002; 94640; 94640 76; 94660; 94760; 94799; 99202; 99281; 99285; J0456; J1120; J1650; J1815; J2920; J2930; J3475; J7120; J7512; S0028

== ENCOUNTER 2016-11-24 12:58 | Inpatient (IN) | payer OTHER ==
[~2016-11-24] VITALS: Ht 160 cm; Wt 80.0 kg
[~2016-11-24 12:58] MED LIST changes: +CALCIUM 500 MG1 EACH PO; +CARDIZEM CD,CA120 MG PO; +DUONEB 2.5-0.5 M3 ML AEROSOL; +LEVAQUIN750 MG PO
[2016-11-24 14:45] LABS: ADD MIUA? YES; BILIRUBIN NEGATIVE; BLOOD NEGATIVE; COLOR YELLOW ((YELLOW)); GLUCOSE (STRIP) 150; KETONES NEGATIVE; LEUKOCYTES NEGATIVE; NITRITE NEGATIVE; PROTEIN (STRIP) 30; SPECIFIC GRAVITY 1.024 (1.000-1.030)
[2016-11-24 14:54] LABS: BACTERIA NONE SEEN /HPF; EPITHELIAL CELLS RARE /HPF; MUCUS TRACE /LPF; RED BLOOD CELLS 0-5 /HPF (0-5); UCUL ADDED? NO; WHITE BLOOD CELLS 0-5 /HPF (0-5)
[2016-11-24 15:08] LABS: EOSINOPHIL (%) 0 % (0-5); HEMATOCRIT 47.7 % (36.0-46.0); IMMATURE GRANULOCYTE (%) 0.5 % (0.0-0.7); IMMATURE GRANULOCYTE COUNT 0.1 K/uL; INSTRUMENT ABS NEUTROPHIL CT 7.8 K/uL; LYMPHOCYTE COUNT 1.1 K/uL (1.0-2.8); MCH 28.8 PG (29.0-34.0); MCHC 28.7 G/DL (30.0-36.0); MONOCYTE (%) 3.2 % (3-12); MONOCYTE COUNT 0.3 K/uL (0-0.8); NEUTROPHIL (%) 84.6 % (45-76); NEUTROPHIL COUNT 7.8 K/uL (1.8-6.4); RBC DIS.WIDTH-CV 13.2 % (11.8-14.6); RBC DIS.WIDTH-SD 49.8 % (39-53); RED BLOOD COUNT 4.76 M/uL (3.80-5.20)
[2016-11-24 15:10] LABS: CHLORIDE 89 mEq/L (99-109); POTASSIUM 4.4 mEq/L (3.7-5.4); SODIUM 146 mEq/L (136-147)
[2016-11-24 15:11] LABS: MAGNESIUM 1.9 mg/dL (1.3-2.7)
[2016-11-24 15:12] LABS: GLUCOSE 139 mg/dL (70-99)
[2016-11-24 15:14] LABS: PTT 22.6 (25-32)
[2016-11-24 15:16] LABS: GFR ESTIMATE (CALCULATED) > 59 mL/min/
[2016-11-24 15:17] LABS: UREA NITROGEN (BUN) 20 mg/dL (9-23)
[2016-11-24 15:22] LABS: TROP-I INTERPRETATION NEGATIVE; TROPONIN-I 0.02 ng/mL (0.0-0.30)
[2016-11-24 15:33] LABS: CARBON DIOXIDE (BICARBONATE) > 40.0 mEq/L (20-31)
[2016-11-24 15:39] LABS: MCV 100.2 FL (83-99); WHITE BLOOD COUNT 9.2 K/uL (4.1-10.2)
[2016-11-24 15:53] LABS: HEMATOLOGY COMMENT 1 SN; MEAN PLAT.VOLUME 9.6 uM^3 (9.5-12.4); PLAT.SUFFICIENCY ADEQUATE
[2016-11-24 15:54] LABS: PLATELET COUNT 165 K/uL (156-360)
[2016-11-24 17:06] LABS: CARBOXY HGB 3.5 % (0-5); METHEMOGLOBIN 1.1 % (0-1.5); PO2 67 mm Hg (80-100)
[2016-11-24 17:07] LABS: COMMENTS - BLOOD GASES A+C+; DEVICE NC; O2 FLOW 4 L/MIN; PCO2 > 128 mm Hg (35-45); SITE RR
[2016-11-24 17:08] LABS: pH 7.25 (7.35-7.45)
[2016-11-24 18:50] LABS: BASE EXCESS 30.8 mEq/L (-3 to +3); BICARBONATE 63.5 mEq/L (22-26); CARBOXY HGB 3.3 % (0-5); COMMENTS - BLOOD GASES A+C+; DEVICE BIPAP; FI02 35 %; MODE SPONT; PCO2 115 mm Hg (35-45); PO2 49 mm Hg (80-100); SITE RR; pH 7.35 (7.35-7.45)
[2016-11-24 18:51] LABS: CONTINUOUS POS AIRWAY PRESSURE 5 cm H2O; PRES. SUPPORT 15 CM/H2O; TOTAL RESP RATE 18 resp/min
[2016-11-24] MEDS ORDERED: TRAMADOL HCL50 MG PO (19:30)
[2016-11-24 20:20] VITALS: BP 126/50
[2016-11-24 20:38] VITALS: BP 102/68
[2016-11-24 21:00] VITALS: BP 118/50
[2016-11-24 21:28] LABS: METH RESISTANT S AUREUS PCR NEGATIVE (NEGATIVE)
[2016-11-24 21:32] LABS: PROBE CHECK PASS; SPECIMEN PROCESSING CONTROL PASS
[2016-11-24 22:00] VITALS: BP 130/47
[2016-11-24 23:00] VITALS: BP 132/55
[2016-11-24 23:29] LABS: BASE EXCESS 31.6 mEq/L (-3 to +3); BICARBONATE 64.2 mEq/L (22-26); CARBOXY HGB 3.7 % (0-5); COMMENTS - BLOOD GASES A+C+; DEVICE 840 MASK VENT; FI02 40 %; METHEMOGLOBIN 1.4 % (0-1.5); MODE SPONT; PCO2 111 mm Hg (35-45); PO2 61 mm Hg (80-100); SITE LR; pH 7.37 (7.35-7.45)
[2016-11-24 23:30] LABS: CONTINUOUS POS AIRWAY PRESSURE 5 cm H2O; PRES. SUPPORT 15 CM/H2O
[2016-11-24 23:53] LABS: CHLORIDE 88 mEq/L (99-109); POTASSIUM 4.4 mEq/L (3.7-5.4); SODIUM 147 mEq/L (136-147)
[2016-11-24 23:59] LABS: GFR ESTIMATE (CALCULATED) > 59 mL/min/
[2016-11-25] VITALS (22 sets, daily range): BP systolic 110–166; BP diastolic 42–98
[2016-11-25] LABS: UREA NITROGEN (BUN) 20 mg/dL (9-23)
[2016-11-25 00:04] LABS: ANION GAP 14 MEQ/L (2-14)
[2016-11-25 00:14] LABS: CARBON DIOXIDE (BICARBONATE) > 40.0 mEq/L (20-31); GLUCOSE 77 mg/dL (70-99)
[2016-11-25 05:49] LABS: BASE EXCESS 26.3 mEq/L (-3 to +3); BICARBONATE 57.4 mEq/L (22-26); CARBOXY HGB 3.2 % (0-5); METHEMOGLOBIN 1.7 % (0-1.5); pH 7.38 (7.35-7.45)
[2016-11-25 05:50] LABS: COMMENTS - BLOOD GASES C+; DEVICE MASK VENT; FI02 40 %; MODE SPONT; PCO2 97 mm Hg (35-45); PEEP 5 CM/H20; PO2 80 mm Hg (80-100); PRES. SUPPORT 15 CM/H2O; SITE LR; TOTAL RESP RATE 14 resp/min
[2016-11-25 06:05] LABS: ANION GAP ND MEQ/L (2-14); CARBON DIOXIDE (BICARBONATE) > 40.0 MEQ/L (20-31); CHLORIDE 90 MEQ/L (99-109); GFR ESTIMATE (CALCULATED) > 59 mL/min/; GLUCOSE 74 mg/dL (70-99); POTASSIUM 3.9 MEQ/L (3.7-5.4); SAMPLE HEMOLYSIS CHECK 0; SAMPLE ICTERIC CHECK 0; SAMPLE LIPEMIA CHECK 0; SODIUM 146 MEQ/L (136-147); UREA NITROGEN (BUN) 18 mg/dL (9-23)
[2016-11-26] VITALS (9 sets, daily range): BP systolic 134–164; BP diastolic 43–72
[2016-11-26 04:26] LABS: BASE EXCESS 20.3 mEq/L (-3 to +3); BICARBONATE 50.7 mEq/L (22-26); CARBOXY HGB 2.6 % (0-5); METHEMOGLOBIN 1.5 % (0-1.5); PCO2 94 mm Hg (35-45); pH 7.34 (7.35-7.45)
[2016-11-26 04:27] LABS: COMMENTS - BLOOD GASES C+A+; DEVICE NC; O2 FLOW 5 L/MIN; PO2 55 mm Hg (80-100); SITE LR; TOTAL RESP RATE 18 resp/min
[2016-11-26 09:08] LABS: EOSINOPHIL (%) 0.9 % (0-5); EOSINOPHIL COUNT 0.1 K/uL (0-0.3); HEMATOCRIT 40.9 % (36.0-46.0); IMMATURE GRANULOCYTE (%) 0.6 % (0.0-0.7); IMMATURE GRANULOCYTE COUNT 0.1 K/uL; INSTRUMENT ABS NEUTROPHIL CT 4.9 K/uL; LYMPHOCYTE COUNT 2.1 K/uL (1.0-2.8); MCH 29.7 PG (29.0-34.0); MCHC 31.1 G/DL (30.0-36.0); MCV 95.8 FL (83-99); MEAN PLAT.VOLUME 9.7 uM^3 (9.5-12.4); MONOCYTE (%) 7.8 % (3-12); MONOCYTE COUNT 0.6 K/uL (0-0.8); NEUTROPHIL (%) 62.7 % (45-76); NEUTROPHIL COUNT 4.9 K/uL (1.8-6.4); NRBC (%) 0.3 /100 WBC (0-0); PLATELET COUNT 175 K/uL (156-360); RBC DIS.WIDTH-CV 13.6 % (11.8-14.6); RBC DIS.WIDTH-SD 47.8 % (39-53); RED BLOOD COUNT 4.27 M/uL (3.80-5.20); WHITE BLOOD COUNT 7.7 K/uL (4.1-10.2)
[2016-11-26 10:08] LABS: ANION GAP ND MEQ/L (2-14); CARBON DIOXIDE (BICARBONATE) > 40.0 MEQ/L (20-31); CHLORIDE 97 MEQ/L (99-109); GFR ESTIMATE (CALCULATED) > 59 mL/min/; GLUCOSE 102 mg/dL (70-99); POTASSIUM 4.1 MEQ/L (3.7-5.4); SAMPLE HEMOLYSIS CHECK 1; SAMPLE ICTERIC CHECK 0; SAMPLE LIPEMIA CHECK 0; SODIUM 146 MEQ/L (136-147); UREA NITROGEN (BUN) 7 mg/dL (9-23)
[2016-11-27 00:35] VITALS: BP 133/60
[2016-11-27 03:56] VITALS: BP 143/66
[2016-11-27 07:28] VITALS: BP 135/63
[2016-11-27 08:19] LABS: EOSINOPHIL (%) 0 % (0-5); HEMATOCRIT 43.4 % (36.0-46.0); IMMATURE GRANULOCYTE (%) 0.3 % (0.0-0.7); INSTRUMENT ABS NEUTROPHIL CT 6.8 K/uL; LYMPHOCYTE COUNT 0.6 K/uL (1.0-2.8); MCH 28.8 PG (29.0-34.0); MCHC 30.4 G/DL (30.0-36.0); MCV 94.6 FL (83-99); MEAN PLAT.VOLUME 10.5 uM^3 (9.5-12.4); MONOCYTE (%) 0.8 % (3-12); MONOCYTE COUNT 0.1 K/uL (0-0.8); NEUTROPHIL (%) 91.1 % (45-76); NEUTROPHIL COUNT 6.8 K/uL (1.8-6.4); PLATELET COUNT 197 K/uL (156-360); RBC DIS.WIDTH-CV 13.3 % (11.8-14.6); RBC DIS.WIDTH-SD 46.5 % (39-53); RED BLOOD COUNT 4.59 M/uL (3.80-5.20); WHITE BLOOD COUNT 7.4 K/uL (4.1-10.2)
[2016-11-27 08:49] LABS: ANION GAP ND MEQ/L (2-14); CHLORIDE 90 MEQ/L (99-109); GFR ESTIMATE (CALCULATED) > 59 mL/min/; POTASSIUM 3.7 MEQ/L (3.7-5.4); SAMPLE HEMOLYSIS CHECK 0; SAMPLE ICTERIC CHECK 0; SAMPLE LIPEMIA CHECK 0; SODIUM 140 MEQ/L (136-147); UREA NITROGEN (BUN) 10 mg/dL (9-23)
[2016-11-27 08:50] LABS: CARBON DIOXIDE (BICARBONATE) > 40.0 MEQ/L (20-31); GLUCOSE 242 mg/dL (70-99)
[2016-11-27 11:17] VITALS: BP 145/63
[2016-11-27 19:04] VITALS: BP 145/64
[2016-11-27 22:26] VITALS: BP 134/70
[2016-11-28 03:26] VITALS: BP 127/61
[2016-11-28 07:41] LABS: ANION GAP 8 MEQ/L (2-14); CHLORIDE 95 MEQ/L (99-109); GFR ESTIMATE (CALCULATED) > 59 mL/min/; GLUCOSE 267 mg/dL (70-99); POTASSIUM 4.2 MEQ/L (3.7-5.4); SAMPLE HEMOLYSIS CHECK 0; SAMPLE ICTERIC CHECK 0; SAMPLE LIPEMIA CHECK 0; SODIUM 142 MEQ/L (136-147); UREA NITROGEN (BUN) 14 mg/dL (9-23)
[2016-11-28 08:10] VITALS: BP 143/75
[2016-11-28 12:51] VITALS: BP 153/67
[2016-11-28] MEDS ORDERED: AZITHROMYCIN250 MG1 PO (13:29)
[2016-11-28] MEDS ORDERED: OMEPRAZOLE20 MG PO (13:35)
[2016-11-28] MEDS ORDERED: DELTASONE20 M1 PO ×3 (13:35→13:41)
== END 2016-11-28 15:28 | disposition home health service (06) | DRG 190 ==
LOC: EME 12:58 → EDOF 17:27 → 4WEST 17:27 → 5EAST 11-26 14:43
PROVIDERS: Emergency Medicine; Obstetrics & Gynecology; Student in an Organized Health Care Education/Training Program; Surgery
PROC: 5A09358 Assistance with Respiratory Ventilation, Less than 24 Consecutive Hours, Intermittent Positive Airway Pressure (ICD-10-PCS; principal; 2016-11-25)
DX: J44.1 Chronic obstructive pulmonary disease with (acute) exacerbation (principal); J44.0 Chronic obstructive pulmonary disease with (acute) lower respiratory infection; J20.9 Acute bronchitis, unspecified; G93.40 Encephalopathy, unspecified; J96.22 Acute and chronic respiratory failure with hypercapnia; J96.21 Acute and chronic respiratory failure with hypoxia; E87.4 Mixed disorder of acid-base balance; F32.9 Major depressive disorder, single episode, unspecified; K21.9 Gastro-esophageal reflux disease without esophagitis; F17.200 Nicotine dependence, unspecified, uncomplicated; I27.2 Other secondary pulmonary hypertension; E03.9 Hypothyroidism, unspecified; G47.33 Obstructive sleep apnea (adult) (pediatric); E66.9 Obesity, unspecified; Z91.19 Patient's noncompliance with other medical treatment and regimen; Z99.81 Dependence on supplemental oxygen; Z68.31 Body mass index [BMI] 31.0-31.9, adult
CPT/HCPCS: 36600; 70450; 71010; 80048; 80048 91; 81003; 82803; 83735; 84484; 85025; 85610; 85730; 87040; 87070; 87205; 87641; 93005; 94002; 94640; 94640 76; 94660; 94799; 99202; 99281; 99285; C9113; J0696; J1644; J2930; J7050; J7512

== ENCOUNTER 2016-12-29 17:19 | Inpatient (IN) | payer OTHER ==
[~2016-12-29] VITALS: Ht 160 cm; Wt 83.0 kg
[~2016-12-29 17:19] MED LIST changes: +AZITHROMYCIN250 MG1 PO; +OMEPRAZOLE20 MG PO; +TRAMADOL HCL50 MG PO
[2016-12-29 18:08] LABS: HEMATOCRIT 46.3 % (36.0-46.0); MCHC 29.2 G/DL (30.0-36.0); MCV 99.6 FL (83-99); MEAN PLAT.VOLUME 9.8 uM^3 (9.5-12.4); PLATELET COUNT 251 K/uL (156-360); RBC DIS.WIDTH-CV 13.2 % (11.8-14.6); RBC DIS.WIDTH-SD 48.5 % (39-53); RED BLOOD COUNT 4.65 M/uL (3.80-5.20); WHITE BLOOD COUNT 10.3 K/uL (4.1-10.2)
[2016-12-29 18:17] LABS: CHLORIDE 89 mEq/L (99-109); POTASSIUM 3.9 mEq/L (3.7-5.4); SODIUM 145 mEq/L (136-147)
[2016-12-29 18:18] LABS: GLUCOSE 167 mg/dL (70-99)
[2016-12-29 18:21] LABS: VENOUS PCO2 121 mm Hg (41-51)
[2016-12-29 18:22] LABS: GFR ESTIMATE (CALCULATED) > 59 mL/min/
[2016-12-29 18:23] LABS: UREA NITROGEN (BUN) 14 mg/dL (9-23)
[2016-12-29 18:26] LABS: CARBON DIOXIDE (BICARBONATE) > 40.0 MEQ/L (20-31); CARBON DIOXIDE (BICARBONATE) > 46.0 mEq/L (20-31)
[2016-12-29 18:29] LABS: TROP-I INTERPRETATION NEGATIVE; TROPONIN-I < 0.01 ng/mL (0.0-0.30)
[2016-12-29 20:06] LABS: BASE EXCESS 30.6 mEq/L (-3 to +3); CARBOXY HGB 2.5 % (0-5); METHEMOGLOBIN 1.1 % (0-1.5); PO2 80 mm Hg (80-100); pH 7.35 (7.35-7.45)
[2016-12-29 20:07] LABS: COMMENTS - BLOOD GASES C+; DEVICE 980; PCO2 116 mm Hg (35-45); SITE RR
[2016-12-29 20:08] LABS: FI02 60 %; MODE NIV; PEEP 5 CM/H20; PRES. SUPPORT 10 CM/H2O; TOTAL RESP RATE 17 resp/min
[2016-12-29 22:06] VITALS: BP 157/70
[2016-12-30 00:09] LABS: ADD MIUA? NO; BILIRUBIN NEGATIVE; BLOOD NEGATIVE; COLOR STRAW ((YELLOW)); GLUCOSE (STRIP) >=500; KETONES NEGATIVE; LEUKOCYTES NEGATIVE; NITRITE NEGATIVE; PROTEIN (STRIP) NEGATIVE; SPECIFIC GRAVITY 1.005 (1.000-1.030); UCUL ADDED? NO; UROBILINOGEN 0.2 MG/DL (0.2-1.0)
[2016-12-30 02:01] LABS: METH RESISTANT S AUREUS PCR NEGATIVE (NEGATIVE)
[2016-12-30 02:06] LABS: PROBE CHECK PASS; SPECIMEN PROCESSING CONTROL PASS
[2016-12-30 05:01] VITALS: BP 136/80
[2016-12-30 05:26] LABS: HEMATOCRIT 44.7 % (36.0-46.0); MCHC 30.2 G/DL (30.0-36.0); MCV 95.9 FL (83-99); PLATELET COUNT 254 K/uL (156-360); RBC DIS.WIDTH-CV 13.1 % (11.8-14.6); RBC DIS.WIDTH-SD 46.3 % (39-53); RED BLOOD COUNT 4.66 M/uL (3.80-5.20); WHITE BLOOD COUNT 5.9 K/uL (4.1-10.2)
[2016-12-30 06:12] LABS: ANION GAP ND MEQ/L (2-14); CHLORIDE 92 MEQ/L (99-109); GFR ESTIMATE (CALCULATED) > 59 mL/min/; GLUCOSE 205 mg/dL (70-99); POTASSIUM 4.5 MEQ/L (3.7-5.4); SAMPLE HEMOLYSIS CHECK 0; SAMPLE ICTERIC CHECK 0; SAMPLE LIPEMIA CHECK 0; SODIUM 147 MEQ/L (136-147); UREA NITROGEN (BUN) 14 mg/dL (9-23)
[2016-12-30 06:36] LABS: CARBON DIOXIDE (BICARBONATE) > 40.0 MEQ/L (20-31)
[2016-12-30 06:57] VITALS: BP 132/87
[2016-12-30 11:32] VITALS: BP 151/65
[2016-12-30 15:10] VITALS: BP 137/63
[2016-12-30] MEDS ORDERED: PAXIL40 MG PO (16:48)
[2016-12-30] MEDS ORDERED: PREDNISONE10 MG PO (16:48)
[2016-12-30] MEDS ORDERED: TUMS500 MG PO (16:51)
[2016-12-30] MEDS ORDERED: PROAIR HFA8.5 GM IH (16:52)
[2016-12-30 19:09] VITALS: BP 142/68
[2016-12-30 23:22] VITALS: BP 126/54
[2016-12-31] VITALS (7 sets, daily range): BP systolic 124–143; BP diastolic 59–77
[2016-12-31 06:41] LABS: ANION GAP ND MEQ/L (2-14); CHLORIDE 93 MEQ/L (99-109); GFR ESTIMATE (CALCULATED) > 59 mL/min/; GLUCOSE 216 mg/dL (70-99); POTASSIUM 4.3 MEQ/L (3.7-5.4); SAMPLE HEMOLYSIS CHECK 0; SAMPLE ICTERIC CHECK 0; SAMPLE LIPEMIA CHECK 0; SODIUM 146 MEQ/L (136-147); UREA NITROGEN (BUN) 18 mg/dL (9-23)
[2016-12-31 06:47] LABS: CARBON DIOXIDE (BICARBONATE) > 40.0 MEQ/L (20-31)
[2016-12-31 08:27] LABS: BASE EXCESS 22.1 mEq/L (-3 to +3); BICARBONATE 53.6 mEq/L (22-26); CARBOXY HGB 2.1 % (0-5); COMMENTS - BLOOD GASES A+C+; DEVICE HFNC; METHEMOGLOBIN 1.7 % (0-1.5); O2 FLOW 10 L/MIN; PCO2 97 mm Hg (35-45); PO2 54 mm Hg (80-100); SITE RR; pH 7.35 (7.35-7.45)
[2016-12-31 17:02] LABS: D-DIMER ELISA 1.23 mg/L FEU (< 0.57)
[2017-01-01 03:20] VITALS: BP 150/67
[2017-01-01 07:30] VITALS: BP 144/64
[2017-01-01 10:18] LABS: HEMATOCRIT 44.8 % (36.0-46.0); MCH 29.1 PG (29.0-34.0); MCHC 30.6 G/DL (30.0-36.0); MCV 95.3 FL (83-99); MEAN PLAT.VOLUME 9.8 uM^3 (9.5-12.4); PLATELET COUNT 242 K/uL (156-360); RBC DIS.WIDTH-CV 13.6 % (11.8-14.6); RBC DIS.WIDTH-SD 47.9 % (39-53); WHITE BLOOD COUNT 17.4 K/uL (4.1-10.2)
[2017-01-01 10:33] LABS: PROTHROMBIN TIME 10.5 (9.2-11.2); PTT 23.2 (25-32)
[2017-01-01 11:18] LABS: ANION GAP 10 MEQ/L (2-14); CHLORIDE 90 MEQ/L (99-109); GFR ESTIMATE (CALCULATED) > 59 mL/min/; GLUCOSE 254 mg/dL (70-99); POTASSIUM 4.4 MEQ/L (3.7-5.4); SAMPLE HEMOLYSIS CHECK 0; SAMPLE ICTERIC CHECK 0; SAMPLE LIPEMIA CHECK 0; SODIUM 140 MEQ/L (136-147); UREA NITROGEN (BUN) 16 mg/dL (9-23)
[2017-01-01 11:54] VITALS: BP 155/72
[2017-01-01 16:00] VITALS: BP 152/74
[2017-01-01 19:30] VITALS: BP 150/70
[2017-01-01 23:57] VITALS: BP 135/94
[2017-01-02 04:08] VITALS: BP 178/81
[2017-01-02 07:34] LABS: HEMATOCRIT 43.7 % (36.0-46.0); MCH 30.4 PG (29.0-34.0); MEAN PLAT.VOLUME 10.1 uM^3 (9.5-12.4); PLATELET COUNT 234 K/uL (156-360); RBC DIS.WIDTH-CV 13.7 % (11.8-14.6); WHITE BLOOD COUNT 13.5 K/uL (4.1-10.2)
[2017-01-02 08:09] LABS: ANION GAP ND MEQ/L (2-14); CARBON DIOXIDE (BICARBONATE) > 40.0 MEQ/L (20-31); CHLORIDE 86 MEQ/L (99-109); GFR ESTIMATE (CALCULATED) > 59 mL/min/; GLUCOSE 214 mg/dL (70-99); POTASSIUM 4.1 MEQ/L (3.7-5.4); SAMPLE HEMOLYSIS CHECK 0; SAMPLE ICTERIC CHECK 0; SAMPLE LIPEMIA CHECK 0; SODIUM 137 MEQ/L (136-147); UREA NITROGEN (BUN) 18 mg/dL (9-23)
[2017-01-02 09:02] VITALS: BP 165/70
[2017-01-02 16:36] VITALS: BP 134/69
[2017-01-02 20:00] VITALS: BP 165/73
[2017-01-02 23:39] VITALS: BP 145/67
[2017-01-03 04:39] VITALS: BP 144/70
[2017-01-03 07:19] VITALS: BP 144/78
[2017-01-03 11:27] VITALS: BP 137/69
[2017-01-03 14:54] LABS: INTER. NORMALIZED RATIO 1.1; PROTHROMBIN TIME 10.7 (9.2-11.2)
[2017-01-03 15:59] VITALS: BP 160/72
[2017-01-03 20:37] VITALS: BP 137/86
[2017-01-03 23:47] VITALS: BP 133/81
[2017-01-04 05:52] VITALS: BP 177/79
[2017-01-04 06:22] LABS: HEMATOCRIT 42.4 % (36.0-46.0); MCH 30.2 PG (29.0-34.0); MCHC 32.1 G/DL (30.0-36.0); NRBC (%) 0.1 /100 WBC (0-0); PLATELET COUNT 220 K/uL (156-360); RBC DIS.WIDTH-CV 13.6 % (11.8-14.6); RBC DIS.WIDTH-SD 47.1 % (39-53); RED BLOOD COUNT 4.51 M/uL (3.80-5.20); WHITE BLOOD COUNT 16.4 K/uL (4.1-10.2)
[2017-01-04 06:33] LABS: INTER. NORMALIZED RATIO 1.1; PROTHROMBIN TIME 11.1 (9.2-11.2)
[2017-01-04 06:52] LABS: ANION GAP ND MEQ/L (2-14); CHLORIDE 88 MEQ/L (99-109); GFR ESTIMATE (CALCULATED) > 59 mL/min/; GLUCOSE 248 mg/dL (70-99); POTASSIUM 4.2 MEQ/L (3.7-5.4); SAMPLE HEMOLYSIS CHECK 0; SAMPLE ICTERIC CHECK 0; SAMPLE LIPEMIA CHECK 0; SODIUM 141 MEQ/L (136-147); UREA NITROGEN (BUN) 21 mg/dL (9-23)
[2017-01-04 06:53] LABS: CARBON DIOXIDE (BICARBONATE) > 40.0 MEQ/L (20-31)
[2017-01-04 07:44] VITALS: BP 173/74
[2017-01-04 11:27] VITALS: BP 146/67
[2017-01-04 15:28] LABS: BASE EXCESS 19.6 mEq/L (-3 to +3); BICARBONATE 50.3 mEq/L (22-26); CARBOXY HGB 2.4 % (0-5); pH 7.37 (7.35-7.45)
[2017-01-04 15:29] LABS: COMMENTS - BLOOD GASES C+; DEVICE NC; O2 FLOW 5 L/MIN; PCO2 87 mm Hg (35-45); PO2 72 mm Hg (80-100); SITE RR; TOTAL RESP RATE 18 resp/min
[2017-01-04 16:00] VITALS: BP 136/96
[2017-01-04 20:00] VITALS: BP 149/74
[2017-01-05] VITALS (7 sets, daily range): BP systolic 139–180; BP diastolic 64–78
[2017-01-05 06:04] LABS: HEMATOCRIT 45.2 % (36.0-46.0); MCHC 31.2 G/DL (30.0-36.0); MEAN PLAT.VOLUME 10.9 uM^3 (9.5-12.4); PLATELET COUNT 272 K/uL (156-360); RBC DIS.WIDTH-CV 13.6 % (11.8-14.6); RBC DIS.WIDTH-SD 46.2 % (39-53); RED BLOOD COUNT 4.86 M/uL (3.80-5.20); WHITE BLOOD COUNT 22.8 K/uL (4.1-10.2)
[2017-01-05 06:26] LABS: INTER. NORMALIZED RATIO 1.9; PTT 64.4 (25-32)
[2017-01-05 06:29] LABS: PROTHROMBIN TIME 19.7 (9.2-11.2)
[2017-01-05 06:32] LABS: ANION GAP ND MEQ/L (2-14); CARBON DIOXIDE (BICARBONATE) > 40.0 MEQ/L (20-31); CHLORIDE 91 MEQ/L (99-109); GFR ESTIMATE (CALCULATED) > 59 mL/min/; GLUCOSE 206 mg/dL (70-99); POTASSIUM 4.3 MEQ/L (3.7-5.4); SAMPLE HEMOLYSIS CHECK 0; SAMPLE ICTERIC CHECK 0; SAMPLE LIPEMIA CHECK 0; SODIUM 143 MEQ/L (136-147); UREA NITROGEN (BUN) 20 mg/dL (9-23)
[2017-01-06 00:18] VITALS: BP 156/81
[2017-01-06 03:00] VITALS: BP 154/81
[2017-01-06 05:56] LABS: INTER. NORMALIZED RATIO 2.6; PROTHROMBIN TIME 27.1 (9.2-11.2)
[2017-01-06 07:54] VITALS: BP 161/79
[2017-01-06] MEDS ORDERED: DILTIAZEM 24HR180 MG PO (10:40)
[2017-01-06] MEDS ORDERED: FUROSEMIDE40 MG PO (10:44)
[2017-01-06] MEDS ORDERED: ADVAIR HFA120 INHALA IH (10:44)
[2017-01-06] MEDS ORDERED: COUMADIN1 MG PO (10:45)
[2017-01-06 11:36] VITALS: BP 117/58
[2017-01-06] MEDS ORDERED: PREDNISONE10 MG PO ×2 (12:23)
== END 2017-01-06 15:11 | disposition home health service (06) | DRG 189 ==
LOC: EME 17:19 → 4EAST 20:50 → EDOF 20:50 → 4EAST 21:58
PROVIDERS: Emergency Medicine; Hospitalist; Physician Assistant
DX: J96.21 Acute and chronic respiratory failure with hypoxia (principal); J96.22 Acute and chronic respiratory failure with hypercapnia; I26.99 Other pulmonary embolism without acute cor pulmonale; J44.0 Chronic obstructive pulmonary disease with (acute) lower respiratory infection; J20.9 Acute bronchitis, unspecified; J44.1 Chronic obstructive pulmonary disease with (acute) exacerbation; I27.2 Other secondary pulmonary hypertension; I27.81 Cor pulmonale (chronic); J84.10 Pulmonary fibrosis, unspecified; I48.0 Paroxysmal atrial fibrillation; I48.2 Chronic atrial fibrillation; G47.33 Obstructive sleep apnea (adult) (pediatric); E03.9 Hypothyroidism, unspecified; I25.10 Atherosclerotic heart disease of native coronary artery without angina pectoris; I25.84 Coronary atherosclerosis due to calcified coronary lesion; K21.9 Gastro-esophageal reflux disease without esophagitis; R29.6 Repeated falls; R26.9 Unspecified abnormalities of gait and mobility; F32.9 Major depressive disorder, single episode, unspecified; M19.90 Unspecified osteoarthritis, unspecified site; M54.6 Pain in thoracic spine; R10.9 Unspecified abdominal pain; E66.9 Obesity, unspecified; Z68.31 Body mass index [BMI] 31.0-31.9, adult; F17.210 Nicotine dependence, cigarettes, uncomplicated; Z79.52 Long term (current) use of systemic steroids; Z99.81 Dependence on supplemental oxygen
CPT/HCPCS: 36600; 71010; 71020; 71275; 80048; 81003; 82803; 83605; 83880; 84484; 85027; 85379; 85610; 85730; 87040; 87070; 87205; 87641; 93005; 93306; 93970; 94002; 94640; 94640 76; 94660; 94760; 94799; 99202; 99281; 99285; J0456; J0696; J1100; J1644; J1650; J1940; J2920; J2930; J7050; J7512

== ENCOUNTER 2017-04-07 22:17 | Inpatient (IN) | payer OTHER ==
[~2017-04-07] VITALS: Ht 160 cm; Wt 76.5 kg
[~2017-04-07 22:17] MED LIST changes: +ADVAIR HFA120 INHALA IH; +COUMADIN1 MG PO; +DILTIAZEM 24HR180 MG PO; +FUROSEMIDE40 MG PO; +PAXIL40 MG PO; +TUMS500 MG PO
[2017-04-07 23:32] LABS: EOSINOPHIL (%) 0.9 % (0-5); EOSINOPHIL COUNT 0.1 K/uL (0-0.3); HEMATOCRIT 44.4 % (36.0-46.0); IMMATURE GRANULOCYTE (%) 0.5 % (0.0-0.7); IMMATURE GRANULOCYTE COUNT 0.1 K/uL; INSTRUMENT ABS NEUTROPHIL CT 6.9 K/uL; LYMPHOCYTE COUNT 1.6 K/uL (1.0-2.8); MCH 28.3 PG (29.0-34.0); MCHC 28.6 G/DL (30.0-36.0); MCV 99.1 FL (83-99); MEAN PLAT.VOLUME 9.9 uM^3 (9.5-12.4); MONOCYTE (%) 6.6 % (3-12); MONOCYTE COUNT 0.6 K/uL (0-0.8); NEUTROPHIL (%) 74.6 % (45-76); NEUTROPHIL COUNT 6.9 K/uL (1.8-6.4); PLATELET COUNT 297 K/uL (156-360); RBC DIS.WIDTH-CV 13.2 % (11.8-14.6); RBC DIS.WIDTH-SD 48.6 % (39-53); RED BLOOD COUNT 4.48 M/uL (3.80-5.20); WHITE BLOOD COUNT 9.2 K/uL (4.1-10.2)
[2017-04-07 23:37] LABS: PROTHROMBIN TIME 53.2 SEC (10.2-12.9)
[2017-04-07 23:40] LABS: PTT 46.2 SEC (25-37)
[2017-04-07 23:41] LABS: INTER. NORMALIZED RATIO 4.5
[2017-04-07 23:46] LABS: CHLORIDE 87 mEq/L (99-109); POTASSIUM 4.2 mEq/L (3.7-5.4); SODIUM 148 mEq/L (136-147)
[2017-04-07 23:48] LABS: GLUCOSE 129 mg/dL (70-99)
[2017-04-07 23:51] LABS: CARBON DIOXIDE (BICARBONATE) > 40.0 mEq/L (20-31)
[2017-04-07 23:52] LABS: GFR ESTIMATE (CALCULATED) > 59 mL/min/; UREA NITROGEN (BUN) 8 mg/dL (9-23)
[2017-04-08 01:07] LABS: BASE EXCESS 27.3 mEq/L (-3 to +3); BICARBONATE 58.2 mEq/L (22-26); CARBOXY HGB 3.2 % (0-5); PCO2 103 mm Hg (35-45); PO2 54 mm Hg (80-100); SITE LR; pH 7.36 (7.35-7.45)
[2017-04-08 01:08] LABS: COMMENTS - BLOOD GASES A+C+; DEVICE NC; O2 FLOW 5 L/MIN; TOTAL RESP RATE 22 resp/min
[2017-04-08] MEDS ORDERED: COUMADIN6 MG PO (01:49)
[2017-04-08] MEDS ORDERED: COUMADIN1 MG PO (01:49)
[2017-04-08] MEDS ORDERED: ADVAIR 250/501 DISK IH (01:50)
[2017-04-08] MEDS ORDERED: PREDNISONE10 MG PO (01:51)
[2017-04-08 05:21] VITALS: BP 139/61
[2017-04-08 05:58] LABS: PROTHROMBIN TIME 62.6 SEC (10.2-12.9)
[2017-04-08 06:05] LABS: INTER. NORMALIZED RATIO 5.3
[2017-04-08 06:37] LABS: POINT-OF-CARE METER ID UU14314088
[2017-04-08 07:44] VITALS: BP 126/62
[2017-04-08 08:23] LABS: METH RESISTANT S AUREUS PCR NEGATIVE (NEGATIVE); PROBE CHECK PASS; SPECIMEN PROCESSING CONTROL PASS
[2017-04-08 08:45] LABS: BASE EXCESS 33.6 mEq/L (-3 to +3); BICARBONATE 67.4 mEq/L (22-26); METHEMOGLOBIN 1.8 % (0-1.5); PO2 54 mm Hg (80-100); pH 7.34 (7.35-7.45)
[2017-04-08 08:46] LABS: COMMENTS - BLOOD GASES +C; DEVICE HFNC; O2 FLOW 7 L/MIN; PCO2 125 mm Hg (35-45); SITE RR +A; TOTAL RESP RATE 22 resp/min
[2017-04-08 10:16] LABS: HEMATOCRIT 42.3 % (36.0-46.0); MCH 29.2 PG (29.0-34.0); MCHC 29.3 G/DL (30.0-36.0); MCV 99.8 FL (83-99); MEAN PLAT.VOLUME 10.1 uM^3 (9.5-12.4); PLATELET COUNT 275 K/uL (156-360); RBC DIS.WIDTH-CV 13.6 % (11.8-14.6); RBC DIS.WIDTH-SD 49.7 % (39-53); RED BLOOD COUNT 4.24 M/uL (3.80-5.20); WHITE BLOOD COUNT 7.8 K/uL (4.1-10.2)
[2017-04-08 10:39] LABS: ANION GAP ND MEQ/L (2-14); CHLORIDE 89 MEQ/L (99-109); GFR ESTIMATE (CALCULATED) > 59 mL/min/; SAMPLE HEMOLYSIS CHECK 0; SAMPLE ICTERIC CHECK 0; SAMPLE LIPEMIA CHECK 0; SODIUM 146 MEQ/L (136-147); UREA NITROGEN (BUN) 8 mg/dL (9-23)
[2017-04-08 10:44] LABS: CARBON DIOXIDE (BICARBONATE) > 40.0 MEQ/L (20-31); GLUCOSE 268 mg/dL (70-99); POTASSIUM 5.1 MEQ/L (3.7-5.4)
[2017-04-08 11:25] VITALS: BP 132/66
[2017-04-08 11:41] LABS: POINT-OF-CARE METER ID UU14314088
[2017-04-08 16:24] LABS: POINT-OF-CARE METER ID UU14314088
[2017-04-08 16:44] VITALS: BP 132/63
[2017-04-08 18:38] LABS: Estimated Average Glucose 123 mg/dL (70-123); HEMOGLOBIN A1c (GLYCOHEMOGLOB) 5.9 % HGB (Below 5.7)
[2017-04-08 20:00] VITALS: BP 155/73
[2017-04-08 21:32] LABS: POINT-OF-CARE METER ID UU13113781
[2017-04-08 23:57] VITALS: BP 130/60
[2017-04-09] VITALS (7 sets, daily range): BP systolic 119–150; BP diastolic 62–79
[2017-04-09 05:29] LABS: HEMATOCRIT 41.1 % (36.0-46.0); MCH 27.8 PG (29.0-34.0); MEAN PLAT.VOLUME 10.2 uM^3 (9.5-12.4); PLATELET COUNT 310 K/uL (156-360); RBC DIS.WIDTH-CV 13.5 % (11.8-14.6); RBC DIS.WIDTH-SD 48.1 % (39-53); RED BLOOD COUNT 4.28 M/uL (3.80-5.20); WHITE BLOOD COUNT 11.1 K/uL (4.1-10.2)
[2017-04-09 05:58] LABS: ANION GAP ND MEQ/L (2-14); CHLORIDE 92 MEQ/L (99-109); GFR ESTIMATE (CALCULATED) > 59 mL/min/; GLUCOSE 146 mg/dL (70-99); POTASSIUM 4.4 MEQ/L (3.7-5.4); SAMPLE HEMOLYSIS CHECK 0; SAMPLE ICTERIC CHECK 0; SAMPLE LIPEMIA CHECK 0; SODIUM 146 MEQ/L (136-147); UREA NITROGEN (BUN) 10 mg/dL (9-23)
[2017-04-09 05:59] LABS: CARBON DIOXIDE (BICARBONATE) > 40.0 MEQ/L (20-31)
[2017-04-09 07:32] LABS: POINT-OF-CARE METER ID UU14174216
[2017-04-09 09:57] LABS: PTT 38.3 SEC (25-37)
[2017-04-09 10:03] LABS: INTER. NORMALIZED RATIO 3.5
[2017-04-09 10:17] LABS: BASE EXCESS 23.7 mEq/L (-3 to +3); BICARBONATE 55.2 mEq/L (22-26); CARBOXY HGB 2.3 % (0-5); COMMENTS - BLOOD GASES +C; DEVICE NC; METHEMOGLOBIN 1.7 % (0-1.5); O2 FLOW 4 L/MIN; PCO2 100 mm Hg (35-45); PO2 52 mm Hg (80-100); SITE RR +A; TOTAL RESP RATE 30 resp/min; pH 7.35 (7.35-7.45)
[2017-04-09 11:58] LABS: POINT-OF-CARE METER ID UU14314088
[2017-04-09 16:31] LABS: POINT-OF-CARE METER ID UU14314088
[2017-04-09 20:55] LABS: POINT-OF-CARE METER ID UU14174216; POINT-OF-CARE USER ID ENVMNS
[2017-04-10 04:00] VITALS: BP 171/72
[2017-04-10 05:28] LABS: CHLORIDE 92 mEq/L (99-109); GLUCOSE 136 mg/dL (70-99); POTASSIUM 5.1 mEq/L (3.7-5.4); SODIUM 147 mEq/L (136-147)
[2017-04-10 05:29] LABS: ANION GAP 10 MEQ/L (2-14)
[2017-04-10 05:31] LABS: PTT 29.1 SEC (25-37)
[2017-04-10 05:32] LABS: CARBON DIOXIDE (BICARBONATE) > 40.0 mEq/L (20-31); GFR ESTIMATE (CALCULATED) > 59 mL/min/; INTER. NORMALIZED RATIO 1.8; PROTHROMBIN TIME 20.1 SEC (10.2-12.9); UREA NITROGEN (BUN) 16 mg/dL (9-23)
[2017-04-10 05:45] LABS: HEMATOCRIT 43.4 % (36.0-46.0); MCH 28.4 PG (29.0-34.0); MCHC 29.5 G/DL (30.0-36.0); MCV 96.4 FL (83-99); MEAN PLAT.VOLUME 10.2 uM^3 (9.5-12.4); PLATELET COUNT 336 K/uL (156-360); RBC DIS.WIDTH-CV 13.8 % (11.8-14.6); RBC DIS.WIDTH-SD 49.1 % (39-53); WHITE BLOOD COUNT 13.2 K/uL (4.1-10.2)
[2017-04-10 07:56] LABS: POINT-OF-CARE METER ID UU14314088
[2017-04-10 08:23] VITALS: BP 132/60
[2017-04-10 11:35] VITALS: BP 129/60
[2017-04-10 11:38] LABS: POINT-OF-CARE METER ID UU13113781
[2017-04-10 13:46] LABS: POINT-OF-CARE METER ID UU14314088
[2017-04-10 16:40] VITALS: BP 132/60
[2017-04-10 20:00] VITALS: BP 144/68
[2017-04-10 21:30] LABS: POINT-OF-CARE METER ID UU14314088
[2017-04-10 23:55] VITALS: BP 122/59
[2017-04-11 04:00] VITALS: BP 125/62
[2017-04-11 05:38] LABS: INTER. NORMALIZED RATIO 1.3; PROTHROMBIN TIME 14.4 SEC (10.2-12.9)
[2017-04-11] MEDS ORDERED: MEDROL DOSEPAK4 MG PO (07:57)
[2017-04-11] MEDS ORDERED: AZITHROMYCIN500 M1 PO (07:57)
[2017-04-11 08:02] LABS: POINT-OF-CARE METER ID UU14314088
[2017-04-11 08:30] VITALS: BP 132/62
[2017-04-11 08:52] LABS: ALKALINE PHOSPHATASE 70 IU/L (3-129); ANION GAP ND MEQ/L (2-14); CARBON DIOXIDE (BICARBONATE) > 40.0 MEQ/L (20-31); CHLORIDE 95 MEQ/L (99-109); GFR ESTIMATE (CALCULATED) > 59 mL/min/; GLUCOSE 70 mg/dL (70-99); POTASSIUM 4.7 MEQ/L (3.7-5.4); SAMPLE HEMOLYSIS CHECK 1; SAMPLE ICTERIC CHECK 0; SAMPLE LIPEMIA CHECK 0; SODIUM 145 MEQ/L (136-147); TOTAL BILIRUBIN 0.4 MG/DL (0.0-1.0); UREA NITROGEN (BUN) 22 mg/dL (9-23)
[2017-04-11 09:03] LABS: HEMATOCRIT 42.7 % (36.0-46.0); MCH 28.8 PG (29.0-34.0); MCHC 29.7 G/DL (30.0-36.0); MCV 96.8 FL (83-99); MEAN PLAT.VOLUME 9.6 uM^3 (9.5-12.4); PLATELET COUNT 310 K/uL (156-360); RBC DIS.WIDTH-CV 13.9 % (11.8-14.6); RBC DIS.WIDTH-SD 50.3 % (39-53); RED BLOOD COUNT 4.41 M/uL (3.80-5.20); WHITE BLOOD COUNT 14.4 K/uL (4.1-10.2)
== END 2017-04-11 12:10 | disposition home or self-care (01) | DRG 167 ==
LOC: EME 22:17 → 4EAST 04-08 02:23 → EDOF 04-08 02:23 → ENRESERV 04-08 02:24 → 4EAST 04-08 04:58
PROVIDERS: Emergency Medicine; Hospitalist; Internal Medicine
PROC: 5A09458 Assistance with Respiratory Ventilation, 24-96 Consecutive Hours, Intermittent Positive Airway Pressure (ICD-10-PCS; principal; 2017-04-08)
PROC: 06H03DZ Insertion of Intraluminal Device into Inferior Vena Cava, Percutaneous Approach (ICD-10-PCS; 2017-04-10)
PROC: B5191ZA Fluoroscopy of Inferior Vena Cava using Low Osmolar Contrast, Guidance (ICD-10-PCS; 2017-04-10)
DX: J96.22 Acute and chronic respiratory failure with hypercapnia (principal); J44.1 Chronic obstructive pulmonary disease with (acute) exacerbation; E87.2 Acidosis; J96.21 Acute and chronic respiratory failure with hypoxia; S00.03XA Contusion of scalp, initial encounter; W18.30XA Fall on same level, unspecified, initial encounter; R79.1 Abnormal coagulation profile; I27.81 Cor pulmonale (chronic); I27.29 Other secondary pulmonary hypertension; Z99.81 Dependence on supplemental oxygen; R29.6 Repeated falls; G47.33 Obstructive sleep apnea (adult) (pediatric); I10 Essential (primary) hypertension; K21.9 Gastro-esophageal reflux disease without esophagitis; E55.9 Vitamin D deficiency, unspecified; E03.9 Hypothyroidism, unspecified; F32.9 Major depressive disorder, single episode, unspecified; F17.210 Nicotine dependence, cigarettes, uncomplicated; Y92.009 Unspecified place in unspecified non-institutional (private) residence as the place of occurrence of the external cause; Z79.01 Long term (current) use of anticoagulants; Z86.711 Personal history of pulmonary embolism
CPT/HCPCS: 36415; 36600; 70450; 71010; 71250; 80048; 80053; 82306; 82607; 82746; 82803; 82948; 83036; 84439; 84443; 85025; 85027; 85610; 85730; 87641; 94640; 94640 76; 94660; 94760; 94799; 99202; 99281; 99285; C1769; J0690; J1644; J1815; J2250; J2270; J2405; J2920; J7512

== ENCOUNTER 2017-05-01 19:28 | Inpatient (IN) | payer OTHER ==
[~2017-05-01] VITALS: Ht 160 cm; Wt 74.9 kg
[~2017-05-01 19:28] MED LIST changes: +COUMADIN6 MG PO
[2017-05-01 21:02] LABS: EOSINOPHIL (%) 0.3 % (0-5); IMMATURE GRANULOCYTE (%) 0.3 % (0.0-0.7); INSTRUMENT ABS NEUTROPHIL CT 6.7 K/uL; LYMPHOCYTE COUNT 1.4 K/uL (1.0-2.8); MCH 28.6 PG (29.0-34.0); MCHC 28.6 G/DL (30.0-36.0); MONOCYTE (%) 7.6 % (3-12); MONOCYTE COUNT 0.7 K/uL (0-0.8); NEUTROPHIL (%) 75.8 % (45-76); NEUTROPHIL COUNT 6.7 K/uL (1.8-6.4); RBC DIS.WIDTH-CV 13.1 % (11.8-14.6); RBC DIS.WIDTH-SD 48.8 % (39-53); WHITE BLOOD COUNT 8.8 K/uL (4.1-10.2)
[2017-05-01 21:11] LABS: CHLORIDE 85 mEq/L (99-109); POTASSIUM 3.9 mEq/L (3.7-5.4); SODIUM 146 mEq/L (136-147)
[2017-05-01 21:13] LABS: GLUCOSE 71 mg/dL (70-99)
[2017-05-01 21:16] LABS: GFR ESTIMATE (CALCULATED) > 59 mL/min/
[2017-05-01 21:17] LABS: UREA NITROGEN (BUN) 12 mg/dL (9-23)
[2017-05-01 21:20] LABS: CARBON DIOXIDE (BICARBONATE) > 40.0 mEq/L (20-31)
[2017-05-01 21:23] LABS: ANION GAP 11 MEQ/L (2-14)
[2017-05-01 21:42] LABS: MEAN PLAT.VOLUME 9.9 uM^3 (9.5-12.4); PLAT.SUFFICIENCY ADEQUATE; PLATELET COUNT 171 K/uL (156-360)
[2017-05-01] MEDS ORDERED: PREDNISONE10 MG PO (21:45)
[2017-05-02 01:03] LABS: PCO2 > 128 mm Hg (35-45); PO2 52 mm Hg (80-100); pH 7.33 (7.35-7.45)
[2017-05-02 05:56] VITALS: BP 128/59
[2017-05-02 06:08] LABS: SITE RR
[2017-05-02 06:09] LABS: CARBOXY HGB 2.7 % (0-5); COMMENTS - BLOOD GASES C+; DEVICE NC; O2 FLOW 5 L/MIN
[2017-05-02 08:37] VITALS: BP 114/70
[2017-05-02 08:59] LABS: BASE EXCESS 32.2 mEq/L (-3 to +3); BICARBONATE 63.8 mEq/L (22-26); CARBOXY HGB 2.8 % (0-5); METHEMOGLOBIN 1.5 % (0-1.5); PO2 45 mm Hg (80-100)
[2017-05-02 09:00] LABS: COMMENTS - BLOOD GASES NAC+; CONTINUOUS POS AIRWAY PRESSURE 10 cm H2O; DEVICE CPAP MASK; O2 FLOW 12 L/MIN; PCO2 103 mm Hg (35-45); SITE RR
[2017-05-02 10:27] VITALS: BP 125/61
[2017-05-02 16:25] VITALS: BP 118/59
[2017-05-02 19:41] VITALS: BP 114/56
[2017-05-02 23:05] VITALS: BP 139/63
[2017-05-03] VITALS (11 sets, daily range): BP systolic 110–137; BP diastolic 55–78
[2017-05-03 09:05] LABS: HEMATOCRIT 44.9 % (36.0-46.0); MCH 28.3 PG (29.0-34.0); MCHC 28.7 G/DL (30.0-36.0); MCV 98.5 FL (83-99); MEAN PLAT.VOLUME 10.2 uM^3 (9.5-12.4); PLATELET COUNT 214 K/uL (156-360); RBC DIS.WIDTH-CV 13.8 % (11.8-14.6); RBC DIS.WIDTH-SD 50.4 % (39-53); RED BLOOD COUNT 4.56 M/uL (3.80-5.20); WHITE BLOOD COUNT 9.8 K/uL (4.1-10.2)
[2017-05-03 09:43] LABS: ANION GAP ND MEQ/L (2-14); CHLORIDE 91 MEQ/L (99-109); GFR ESTIMATE (CALCULATED) > 59 mL/min/; POTASSIUM 3.9 MEQ/L (3.7-5.4); SAMPLE HEMOLYSIS CHECK 0; SAMPLE ICTERIC CHECK 0; SAMPLE LIPEMIA CHECK 0; SODIUM 147 MEQ/L (136-147); UREA NITROGEN (BUN) 7 mg/dL (9-23)
[2017-05-03 09:45] LABS: CARBON DIOXIDE (BICARBONATE) > 40.0 MEQ/L (20-31); GLUCOSE 94 mg/dL (70-99)
[2017-05-03 10:43] LABS: COMMENTS - BLOOD GASES A+C+; DEVICE BIPAP; O2 FLOW 10 L/MIN; SITE RR; TOTAL RESP RATE 20 resp/min
[2017-05-03 10:44] LABS: BICARBONATE 57.1 mEq/L (22-26); CARBOXY HGB 2.3 % (0-5); HEMOGLOBIN 13 (11.9-15.5); METHEMOGLOBIN 1.7 % (0-1.5); PCO2 116 mm Hg (35-45); PO2 230 mm Hg (80-100)
[2017-05-03 10:45] LABS: BASE EXCESS 24.3 mEq/L (-3 to +3)
[2017-05-03 15:13] LABS: METH RESISTANT S AUREUS PCR NEGATIVE (NEGATIVE)
[2017-05-03 15:17] LABS: PROBE CHECK PASS; SPECIMEN PROCESSING CONTROL PASS
[2017-05-04] VITALS (10 sets, daily range): BP systolic 100–142; BP diastolic 58–76
[2017-05-05] VITALS: BP 129/66
[2017-05-05 01:30] VITALS: BP 120/73
[2017-05-05 05:04] VITALS: BP 143/68
[2017-05-05 07:48] VITALS: BP 134/65
[2017-05-05 10:37] LABS: HEMATOCRIT 40.5 % (36.0-46.0); MCH 29.4 PG (29.0-34.0); MCHC 31.9 G/DL (30.0-36.0); MEAN PLAT.VOLUME 10.6 uM^3 (9.5-12.4); PLATELET COUNT 233 K/uL (156-360); RBC DIS.WIDTH-CV 14.1 % (11.8-14.6); RED BLOOD COUNT 4.39 M/uL (3.80-5.20); WHITE BLOOD COUNT 13.5 K/uL (4.1-10.2)
[2017-05-05 10:55] LABS: MCV 92.3 FL (83-99)
[2017-05-05 11:00] LABS: ANION GAP 9 MEQ/L (2-14); CHLORIDE 93 MEQ/L (99-109); GFR ESTIMATE (CALCULATED) > 59 mL/min/; SAMPLE HEMOLYSIS CHECK 0; SAMPLE ICTERIC CHECK 0; SAMPLE LIPEMIA CHECK 0; SODIUM 142 MEQ/L (136-147); UREA NITROGEN (BUN) 17 mg/dL (9-23)
[2017-05-05 11:04] LABS: GLUCOSE 223 mg/dL (70-99)
[2017-05-05 11:17] VITALS: BP 137/64
[2017-05-05] MEDS ORDERED: DUONEB 2.5-0.5 M3 ML AEROSOL (11:52)
[2017-05-05] MEDS ORDERED: PROAIR HFA8.5 GM IH (11:52)
[2017-05-05] MEDS ORDERED: PREDNISONE20 MG PO (13:51)
[2017-05-05] MEDS ORDERED: LEVAQUIN750 MG PO (13:51)
== END 2017-05-05 14:58 | disposition home or self-care (01) | DRG 190 ==
LOC: EME 19:28 → EDOF 05-02 02:20 → ENRESERV 05-02 02:26 → CANRESERV 05-02 02:26 → EDOF 05-02 03:49 → 3EAST 05-02 03:49 → 4WEST 05-02 03:49 → 4EAST 05-02 03:49 → ENRESERV 05-02 03:51 → CANRESERV 05-02 03:51 → ENRESERV 05-02 03:55 → 3EAST 05-02 05:27 → CANRESERV 05-02 09:16 → ENRESERV 05-02 09:16 → 4EAST 05-02 10:19 → ENRESERV 05-03 12:20 → CANRESERV 05-03 12:20 → ENRESERV 05-03 12:47 → 4WEST 05-03 13:13 → ENPENDDIS 05-05 → ENRESERV 05-05 00:35 → 4EAST 05-05 01:34
PROVIDERS: Emergency Medicine; Hospitalist; Internal Medicine Critical Care Medicine; Nurse Practitioner Adult Health
PROC: 5A09357 Assistance with Respiratory Ventilation, Less than 24 Consecutive Hours, Continuous Positive Airway Pressure (ICD-10-PCS; principal; 2017-05-02)
PROC: 5A09358 Assistance with Respiratory Ventilation, Less than 24 Consecutive Hours, Intermittent Positive Airway Pressure (ICD-10-PCS; 2017-05-03)
DX: J44.1 Chronic obstructive pulmonary disease with (acute) exacerbation (principal); J96.22 Acute and chronic respiratory failure with hypercapnia; J44.0 Chronic obstructive pulmonary disease with (acute) lower respiratory infection; J20.9 Acute bronchitis, unspecified; I10 Essential (primary) hypertension; I25.10 Atherosclerotic heart disease of native coronary artery without angina pectoris; G47.33 Obstructive sleep apnea (adult) (pediatric); I27.29 Other secondary pulmonary hypertension; I27.81 Cor pulmonale (chronic); S06.0X9A Concussion with loss of consciousness of unspecified duration, initial encounter; S00.03XA Contusion of scalp, initial encounter; S40.012A Contusion of left shoulder, initial encounter; S41.112A Laceration without foreign body of left upper arm, initial encounter; S80.01XA Contusion of right knee, initial encounter; W06.XXXA Fall from bed, initial encounter; K21.9 Gastro-esophageal reflux disease without esophagitis; F32.9 Major depressive disorder, single episode, unspecified; F41.9 Anxiety disorder, unspecified; E03.9 Hypothyroidism, unspecified; R29.6 Repeated falls; Z66 Do not resuscitate; F17.210 Nicotine dependence, cigarettes, uncomplicated; Y92.009 Unspecified place in unspecified non-institutional (private) residence as the place of occurrence of the external cause; Z91.19 Patient's noncompliance with other medical treatment and regimen; Z86.711 Personal history of pulmonary embolism; Z86.718 Personal history of other venous thrombosis and embolism; Z91.81 History of falling; Z99.81 Dependence on supplemental oxygen
CPT/HCPCS: 36600; 70450; 71010; 73030; 73564; 80048; 80048 91; 82803; 85025; 85027; 87641; 94002; 94640; 94640 76; 94660; 94668; 94799; 99202; 99281; 99285; J0456; J0692; J2920; J2930; J7050; J7512

== ENCOUNTER 2017-06-26 15:33 | Inpatient (IN) | payer OTHER ==
[~2017-06-26] VITALS: Ht 160 cm; Wt 72.5 kg
[~2017-06-26 15:33] MED LIST changes: +PREDNISONE20 MG PO
[2017-06-26 15:59] LABS: HEMOGLOBIN 14.2 G/DL (11.9-15.5); MCHC 28.4 G/DL (30.0-36.0); PLATELET COUNT 168 K/uL (156-360); RBC DIS.WIDTH-CV 13.3 % (11.8-14.6); RBC DIS.WIDTH-SD 50.2 % (39-53); WHITE BLOOD COUNT 20.7 K/uL (4.1-10.2)
[2017-06-26 16:06] LABS: BASE EXCESS 27.7 mEq/L (-3 to +3); BICARBONATE 60.1 mEq/L (22-26); CARBOXY HGB 2.8 % (0-5); COMMENTS - BLOOD GASES A+C+; DEVICE VENTILATOR; FI02 40 %; METHEMOGLOBIN 1.2 % (0-1.5); PCO2 104 mm Hg (35-45); PO2 106 mm Hg (80-100); SITE RR; pH 7.37 (7.35-7.45)
[2017-06-26 16:07] LABS: MECHANICAL RATE 18 resp/min; MODE AC; PEEP 5 CM/H20; TIDAL VOLUME 500 ML; TOTAL RESP RATE 19 resp/min
[2017-06-26 16:11] LABS: ALBUMIN 3.7 g/dL (3.2-4.8); CHLORIDE 85 mEq/L (99-109); POTASSIUM 5.4 mEq/L (3.7-5.4); SODIUM 144 mEq/L (136-147)
[2017-06-26 16:13] LABS: GLUCOSE 204 mg/dL (70-99)
[2017-06-26 16:14] LABS: TOTAL PROTEIN 7.7 g/dL (6.4-8.3)
[2017-06-26 16:15] LABS: TOTAL BILIRUBIN 0.4 mg/dL (0.0-1.0)
[2017-06-26 16:16] LABS: SERUM ETHYL ALCOHOL < 10 mg/dL
[2017-06-26 16:17] LABS: ALKALINE PHOSPHATASE 102 IU/L (3-129); CREATININE 0.7 mg/dL (0.6-1.3); GFR ESTIMATE (CALCULATED) > 59 mL/min/
[2017-06-26 16:18] LABS: UREA NITROGEN (BUN) 21 mg/dL (9-23)
[2017-06-26 16:19] LABS: AST (GOT) 16 IU/L (2-34)
[2017-06-26 16:20] LABS: ALT (GPT) 18 IU/L (3-49); TROP-I INTERPRETATION NEGATIVE; TROPONIN-I 0.03 ng/mL (0.0-0.30)
[2017-06-26 16:22] LABS: CARBON DIOXIDE (BICARBONATE) > 40.0 mEq/L (20-31)
[2017-06-26 16:26] LABS: AMPHETAMINE NEGATIVE (500 ng/mL); BARBITURATES NEGATIVE (200 ng/mL); BENZODIAZEPINES NEGATIVE (150 ng/mL); BUPRENORPHINE NEGATIVE (10 ng/mL); COCAINE NEGATIVE (150 ng/mL); METHADONE NEGATIVE (200 ng/mL); METHAMPHETAMINE NEGATIVE (500 ng/mL); OPIATES (MORPHINE) NEGATIVE (100 ng/mL); OXYCODONE NEGATIVE (100 ng/mL); PHENCYCLIDINE NEGATIVE (25 ng/mL); PROPOXYPHENE NEGATIVE (300 ng/mL); THC CANNABINOIDS NEGATIVE (50 ng/mL); TRICYCLIC ANTIDEPRESSANTS NEGATIVE (300 ng/mL)
[2017-06-26 17:29] LABS: THYROTROPIN (TSH) 0.64 MIU/L (0.4-5.5)
[2017-06-26 19:15] VITALS: BP 118/63
[2017-06-26 19:30] VITALS: BP 118/63
[2017-06-26 20:00] VITALS: BP 109/61
[2017-06-26 20:20] LABS: APPEARANCE CLEAR ((CLEAR)); BILIRUBIN NEGATIVE; BLOOD NEGATIVE; COLOR YELLOW ((YELLOW)); GLUCOSE (STRIP) NEGATIVE; KETONES NEGATIVE; LEUKOCYTES NEGATIVE; NITRITE NEGATIVE; PROTEIN (STRIP) 100; SPECIFIC GRAVITY 1.015 (1.000-1.030); UROBILINOGEN 0.2 MG/DL (0.2-1.0)
[2017-06-26 20:40] LABS: BACTERIA NONE SEEN /HPF; EPITHELIAL CELLS RARE /HPF; MUCUS TRACE /LPF; RED BLOOD CELLS 0-5 /HPF (0-5); WHITE BLOOD CELLS 0-5 /HPF (0-5)
[2017-06-26 21:00] VITALS: BP 110/58
[2017-06-26 22:00] VITALS: BP 104/59
[2017-06-26 23:00] VITALS: BP 113/51
[2017-06-27] VITALS (22 sets, daily range): BP systolic 105–154; BP diastolic 51–88
[2017-06-27 06:17] LABS: HEMATOCRIT 42.2 % (36.0-46.0); MCH 28.6 PG (29.0-34.0); MCHC 28.7 G/DL (30.0-36.0); MCV 99.8 FL (83-99); PLATELET COUNT 165 K/uL (156-360); RBC DIS.WIDTH-CV 13.2 % (11.8-14.6); RBC DIS.WIDTH-SD 48.6 % (39-53); RED BLOOD COUNT 4.23 M/uL (3.80-5.20); WHITE BLOOD COUNT 15.1 K/uL (4.1-10.2)
[2017-06-27 06:19] LABS: HEMOGLOBIN 12.1 G/DL (11.9-15.5)
[2017-06-27 06:38] LABS: CHLORIDE 89 MEQ/L (99-109); CREATININE 0.6 MG/DL (0.6-1.3); GFR ESTIMATE (CALCULATED) > 59 mL/min/; GLUCOSE 181 mg/dL (70-99); SODIUM 148 MEQ/L (136-147); UREA NITROGEN (BUN) 25 mg/dL (9-23)
[2017-06-27 06:40] LABS: POTASSIUM 3.2 MEQ/L (3.7-5.4)
[2017-06-27 06:45] LABS: CARBON DIOXIDE (BICARBONATE) > 40.0 MEQ/L (20-31)
[2017-06-28] VITALS (24 sets, daily range): BP systolic 113–156; BP diastolic 56–90
[2017-06-28 05:59] LABS: BASOPHIL (%) 0.1 % (0-1); EOSINOPHIL (%) 0 % (0-5); HEMATOCRIT 41.5 % (36.0-46.0); HEMOGLOBIN 12.4 G/DL (11.9-15.5); IMMATURE GRANULOCYTE (%) 1.2 % (0.0-0.7); LYMPHOCYTE COUNT 0.5 K/uL (1.0-2.8); MCH 27.9 PG (29.0-34.0); MCHC 29.9 G/DL (30.0-36.0); MONOCYTE (%) 2.2 % (3-12); MONOCYTE COUNT 0.4 K/uL (0-0.8); NEUTROPHIL (%) 93.5 % (45-76); NEUTROPHIL COUNT 15.8 K/uL (1.8-6.4); PLATELET COUNT 203 K/uL (156-360); RBC DIS.WIDTH-CV 13.7 % (11.8-14.6); RBC DIS.WIDTH-SD 46.8 % (39-53); RED BLOOD COUNT 4.45 M/uL (3.80-5.20); WHITE BLOOD COUNT 16.9 K/uL (4.1-10.2)
[2017-06-28 06:15] LABS: CHLORIDE 86 MEQ/L (99-109); CREATININE 0.6 MG/DL (0.6-1.3); GFR ESTIMATE (CALCULATED) > 59 mL/min/; GLUCOSE 255 mg/dL (70-99); MAGNESIUM 1.6 mg/dl (1.3-2.7); POTASSIUM 2.9 MEQ/L (3.7-5.4); UREA NITROGEN (BUN) 30 mg/dL (9-23)
[2017-06-28 06:17] LABS: CARBON DIOXIDE (BICARBONATE) > 40.0 MEQ/L (20-31); MCV 93.3 FL (83-99); SODIUM 139 MEQ/L (136-147)
[2017-06-29] VITALS (18 sets, daily range): BP systolic 124–159; BP diastolic 64–120
[2017-06-30] VITALS (9 sets, daily range): BP systolic 133–175; BP diastolic 66–94
[2017-06-30 08:49] LABS: HEMATOCRIT 44.1 % (36.0-46.0); HEMOGLOBIN 13.7 G/DL (11.9-15.5); MCH 28.4 PG (29.0-34.0); MCHC 31.1 G/DL (30.0-36.0); MCV 91.3 FL (83-99); PLATELET COUNT 235 K/uL (156-360); RBC DIS.WIDTH-CV 14.2 % (11.8-14.6); RBC DIS.WIDTH-SD 47.9 % (39-53); RED BLOOD COUNT 4.83 M/uL (3.80-5.20); WHITE BLOOD COUNT 17.9 K/uL (4.1-10.2)
[2017-06-30 09:16] LABS: CHLORIDE 92 MEQ/L (99-109); CREATININE 0.4 MG/DL (0.6-1.3); GFR ESTIMATE (CALCULATED) > 59 mL/min/; GLUCOSE 183 mg/dL (70-99); SODIUM 140 MEQ/L (136-147); UREA NITROGEN (BUN) 22 mg/dL (9-23)
[2017-06-30 09:18] LABS: CARBON DIOXIDE (BICARBONATE) > 40.0 MEQ/L (20-31); POTASSIUM 3.7 MEQ/L (3.7-5.4)
[2017-07-01 01:33] VITALS: BP 127/83
[2017-07-01 01:33] LABS: BASE EXCESS 14.9 mEq/L (-3 to +3); BICARBONATE 49.2 mEq/L (22-26); CARBOXY HGB 2.3 % (0-5); METHEMOGLOBIN 1.4 % (0-1.5)
[2017-07-01 01:34] LABS: DEVICE BIPAP; O2 FLOW 15 L/MIN; PCO2 126 mm Hg (35-45); PO2 57 mm Hg (80-100); PRES. SUPPORT 12 CM/H2O; SITE RR
[2017-07-01 01:35] LABS: PEEP 8 CM/H20
[2017-07-01 01:54] VITALS: BP 146/87
[2017-07-01 07:27] VITALS: BP 133/88
[2017-07-01 11:33] LABS: BASE EXCESS 21.4 mEq/L (-3 to +3); BICARBONATE 51.4 mEq/L (22-26); CARBOXY HGB 2.3 % (0-5); METHEMOGLOBIN 1.7 % (0-1.5)
[2017-07-01 11:34] LABS: COMMENTS - BLOOD GASES A+C+; DEVICE BIPAP; O2 FLOW 13 L/MIN; PCO2 83 mm Hg (35-45); PO2 46 mm Hg (80-100); SITE RR; TOTAL RESP RATE 15 resp/min
[2017-07-01 11:49] VITALS: BP 156/84
[2017-07-01 17:00] VITALS: BP 139/69
[2017-07-01 22:28] VITALS: BP 140/62
[2017-07-02] VITALS (7 sets, daily range): BP systolic 128–149; BP diastolic 60–99
[2017-07-03 03:00] VITALS: BP 118/59
[2017-07-03 08:00] VITALS: BP 153/87
[2017-07-03 10:25] LABS: BASOPHIL (%) 0.3 % (0-1); BASOPHIL COUNT 0.1 K/uL (0-0.1); EOSINOPHIL (%) 0 % (0-5); HEMATOCRIT 42.9 % (36.0-46.0); HEMOGLOBIN 13.3 G/DL (11.9-15.5); IMMATURE GRANULOCYTE (%) 1.3 % (0.0-0.7); LYMPHOCYTE (%) 6.7 % (15-42); LYMPHOCYTE COUNT 1.6 K/uL (1.0-2.8); MCH 28.3 PG (29.0-34.0); MCV 91.3 FL (83-99); MONOCYTE (%) 5.6 % (3-12); MONOCYTE COUNT 1.3 K/uL (0-0.8); NEUTROPHIL (%) 86.1 % (45-76); NEUTROPHIL COUNT 20.5 K/uL (1.8-6.4); PLATELET COUNT 284 K/uL (156-360); RBC DIS.WIDTH-CV 13.9 % (11.8-14.6); RBC DIS.WIDTH-SD 47.1 % (39-53); WHITE BLOOD COUNT 23.8 K/uL (4.1-10.2)
[2017-07-03 10:47] LABS: CHLORIDE 94 MEQ/L (99-109); CREATININE 0.4 MG/DL (0.6-1.3); GFR ESTIMATE (CALCULATED) > 59 mL/min/; GLUCOSE 190 mg/dL (70-99); POTASSIUM 3.8 MEQ/L (3.7-5.4); SODIUM 140 MEQ/L (136-147); UREA NITROGEN (BUN) 15 mg/dL (9-23)
[2017-07-03 10:49] LABS: CARBON DIOXIDE (BICARBONATE) > 40.0 MEQ/L (20-31)
[2017-07-03 11:42] VITALS: BP 131/93
[2017-07-03 16:04] VITALS: BP 145/70
[2017-07-03 19:00] VITALS: BP 129/71
[2017-07-03 23:00] VITALS: BP 153/69
[2017-07-04 03:30] VITALS: BP 143/69
[2017-07-04 06:50] LABS: CHLORIDE 96 MEQ/L (99-109); CREATININE 0.4 MG/DL (0.6-1.3); GFR ESTIMATE (CALCULATED) > 59 mL/min/; GLUCOSE 173 mg/dL (70-99); POTASSIUM 4.7 MEQ/L (3.7-5.4); SODIUM 142 MEQ/L (136-147); UREA NITROGEN (BUN) 16 mg/dL (9-23)
[2017-07-04 06:55] LABS: BASOPHIL (%) 0.3 % (0-1); BASOPHIL COUNT 0.1 K/uL (0-0.1); EOSINOPHIL (%) 0 % (0-5); HEMATOCRIT 41.8 % (36.0-46.0); HEMOGLOBIN 12.7 G/DL (11.9-15.5); IMMATURE GRANULOCYTE (%) 1.9 % (0.0-0.7); LYMPHOCYTE (%) 5.1 % (15-42); MCH 27.8 PG (29.0-34.0); MCHC 30.4 G/DL (30.0-36.0); MCV 91.5 FL (83-99); MONOCYTE (%) 3.1 % (3-12); MONOCYTE COUNT 0.6 K/uL (0-0.8); NEUTROPHIL (%) 89.6 % (45-76); NEUTROPHIL COUNT 17.8 K/uL (1.8-6.4); PLATELET COUNT 290 K/uL (156-360); RBC DIS.WIDTH-CV 13.9 % (11.8-14.6); RBC DIS.WIDTH-SD 46.9 % (39-53); RED BLOOD COUNT 4.57 M/uL (3.80-5.20); WHITE BLOOD COUNT 19.8 K/uL (4.1-10.2)
[2017-07-04 07:36] VITALS: BP 150/71
[2017-07-04 11:48] VITALS: BP 136/79
[2017-07-04 15:15] VITALS: BP 142/70
[2017-07-04 20:00] VITALS: BP 161/74
[2017-07-04 23:52] VITALS: BP 136/64
[2017-07-05 04:11] VITALS: BP 130/68
[2017-07-05 06:42] LABS: BASOPHIL (%) 0.2 % (0-1); EOSINOPHIL (%) 0 % (0-5); HEMATOCRIT 40.4 % (36.0-46.0); HEMOGLOBIN 12.4 G/DL (11.9-15.5); IMMATURE GRANULOCYTE (%) 1.6 % (0.0-0.7); LYMPHOCYTE COUNT 2.1 K/uL (1.0-2.8); MCH 28.1 PG (29.0-34.0); MCHC 30.7 G/DL (30.0-36.0); MCV 91.4 FL (83-99); MONOCYTE (%) 6.2 % (3-12); MONOCYTE COUNT 1.3 K/uL (0-0.8); NEUTROPHIL COUNT 16.9 K/uL (1.8-6.4); PLATELET COUNT 301 K/uL (156-360); RBC DIS.WIDTH-CV 13.8 % (11.8-14.6); RBC DIS.WIDTH-SD 47.1 % (39-53); RED BLOOD COUNT 4.42 M/uL (3.80-5.20); WHITE BLOOD COUNT 20.6 K/uL (4.1-10.2)
[2017-07-05 07:25] LABS: CHLORIDE 97 MEQ/L (99-109); CREATININE 0.4 MG/DL (0.6-1.3); GFR ESTIMATE (CALCULATED) > 59 mL/min/; GLUCOSE 147 mg/dL (70-99); SODIUM 146 MEQ/L (136-147); UREA NITROGEN (BUN) 13 mg/dL (9-23)
[2017-07-05 07:28] LABS: CARBON DIOXIDE (BICARBONATE) > 40.0 MEQ/L (20-31); POTASSIUM 3.5 MEQ/L (3.7-5.4)
[2017-07-05 08:40] VITALS: BP 178/76
[2017-07-05 12:04] VITALS: BP 164/76
[2017-07-05 16:45] VITALS: BP 148/66
[2017-07-05 20:28] VITALS: BP 138/62
[2017-07-05 23:30] VITALS: BP 132/67
[2017-07-06 05:00] VITALS: BP 143/72
[2017-07-06 07:53] VITALS: BP 152/69
[2017-07-06 11:55] VITALS: BP 136/77
[2017-07-06] MEDS ORDERED: DOXYCYCLINE HY100 M3 PO (14:23)
[2017-07-06] MEDS ORDERED: PREDNISONE5 MG PO (14:27)
== END 2017-07-06 15:27 | disposition home health service (06) | DRG 208 ==
LOC: EME 15:33 → 4WEST 17:34 → 4EAST 17:34 → EDOF 17:34 → ENRESERV 17:39 → 4WEST 19:17 → ENRESERV 06-29 22:10 → 5SOUTH 06-30 03:02 → ENRESERV 07-01 01:33 → 4EAST 07-01 01:51 → ENPENDDIS 07-06 → 4EAST 07-06 15:27
PROVIDERS: Emergency Medicine; Internal Medicine; Internal Medicine Critical Care Medicine; Physician Assistant Medical
DX: J44.1 Chronic obstructive pulmonary disease with (acute) exacerbation (principal); J96.21 Acute and chronic respiratory failure with hypoxia; G93.40 Encephalopathy, unspecified; I48.2 Chronic atrial fibrillation; E87.2 Acidosis; I10 Essential (primary) hypertension; J96.22 Acute and chronic respiratory failure with hypercapnia; E03.9 Hypothyroidism, unspecified; F05 Delirium due to known physiological condition; Z66 Do not resuscitate; M48.54XA Collapsed vertebra, not elsewhere classified, thoracic region, initial encounter for fracture; K21.9 Gastro-esophageal reflux disease without esophagitis; F17.200 Nicotine dependence, unspecified, uncomplicated; F32.9 Major depressive disorder, single episode, unspecified; Z79.52 Long term (current) use of systemic steroids; Z68.28 Body mass index [BMI] 28.0-28.9, adult; Z91.19 Patient's noncompliance with other medical treatment and regimen; Z99.81 Dependence on supplemental oxygen; Z86.711 Personal history of pulmonary embolism; Z91.81 History of falling
CPT/HCPCS: 36600; 71010; 71045; 71046; 72070; 72100; 74000; 80048; 80053; 81003; 82803; 82948; 83605; 83735; 84443; 84484; 85025; 85027; 87040; 87070; 87077; 87185; 87205; 87502; 87641; 93005; 94002; 94003; 94640; 94640 76; 94660; 94760; 94799; 97530 GO; 99202; 99281; 99285; G0480; J0456; J1650; J1956; J2250; J2704; J2920; J2930; J3010; J3475; J3480; J7050; J7512; S0028